=== PATIENT | female | born 1995 | race Caucasian/White ===

== ENCOUNTER 2022-02-01 09:23 | Outpatient (CLI) | payer MEDICAID, SELFPAY ==
--- NOTE | 2022-02-01 09:45 | CRLHL7_ITS ---
For Patients: As a result of the Century Cures Act, medical imaging exams and procedure reports are released immediately into your electronic medical record. You may view this report before your referring provider. If you have questions, please contact your health care provider. INDICATION: Third trimester scan, evaluate growth. MARGINAL CORD INSERT INTO PLACENTA COMPARISON: 11/11/2021 TECHNIQUE: Real time concepcion scale imaging of the fetus was performed. FINDINGS: Sonographic imaging demonstrates a single living intrauterine gestation. Fetus demonstrates a regular cardiac rate of 143 beats per minute. Fetus has a vertex position. The placenta lies left posterior. Marginal cord insertion noted with the cord inserting 1 cm from the edge of the placenta. Amniotic fluid volume appears normal and there is a single deepest vertical pocket: 4.7 cm. The estimated weight is 2141gm which lies at the 60th %. On the prior OB ultrasound exam dated 11/11/2021 the estimated weight was at the 75th%. BPD 68th percentile. HC 67th percentile. AC 84th percentile. FL 13th percentile. The HC/AC ratio measures 1.04 range (0.96-1.11). IMPRESSION: A sonographic gestational age 33 weeks 2 days and sonographic due date 03/20/2022. Sonographic age 5 days ahead of the clinical age. Estimated weight is 68th percentile. Abdominal circumference 84th percentile. Dictated by Maurilio London MD @ 02/01/2022 10:37:15 AM (Electronically Signed)
== END 2022-02-01 09:24 | disposition home or self-care (01) ==
LOC: US 09:25
PROVIDERS: PCP Family Medicine; Visit Provider Obstetrics & Gynecology
DX: Z34.93 Encounter for supervision of normal pregnancy, unspecified, third trimester (principal); Z36.89 Encounter for other specified antenatal screening; Z3A.33 33 weeks gestation of pregnancy
CPT/HCPCS: 76816

== ENCOUNTER 2022-02-10 14:37 | Outpatient (CLI) | payer MEDICAID, SELFPAY ==
[2022-02-10] VITALS (28 sets, daily range): BP systolic 107–115; BP diastolic 55–65; PULSE 65–88; RESP 16; TEMP 36.6–36.9; O2SAT 98–100
[2022-02-10 15:46] LABS: Hematocrit 35.8 % (33.0-51.0); Hemoglobin* 12.2 gm/dL (12.0-16.0); Mean Corpuscular HGB Conc 34 gm/dL (32-36); Mean Corpuscular Hemoglobin 28 pg (26-34); Mean Corpuscular Volume 83 fL (80-100); Platelet Count* 170 K/uL (140-440); White Blood Count* 9.83 K/uL (4.50-11.00)
[2022-02-10 16:03] LABS: Slide Review Reflex No
[2022-02-10 16:29] LABS: Total Protein Urine 9 mg/dL
[2022-02-10 16:32] LABS: Alanine Aminotransferase* 11 U/L (4-35); Aspartate Amino Transferase* 22 U/L (12-35); Blood Urea Nitrogen* 6 mg/dL (5-24); Creatinine Urine 43.1 mg/dL; Creatinine* 0.5 mg/dL (0.5-1.5); Estimated Glomerular Filt Rate 131 ml/min
[2022-02-10 17:09] LABS: Appearance Urine Clear (Clear); Bilirubin Urine Negative (Negative); Blood Urine Negative (Negative); Color Urine Yellow (Yellow); Glucose Urine Negative (Negative); Ketones Urine Negative (Negative); Leukocyte Esterase Urine Negative (Negative); Nitrite Urine Negative (Negative); Protein Urine Negative (Negative); Specific Gravity Urine 1.015 (1.000-1.030); Urobilinogen Urine 0.2 (0.2-1.0); pH Urine 7.5 (5.0-8.5)
--- NOTE | 2022-02-10 18:25 | PC.OBNST ---
NST Note NST Note Start: 02/10/22 14:42 Freq: ONCE Status: Active Protocol: Document 02/10/22 17:58 DENISE (Rec: 02/10/22 18:25 DENISE [id number]) NST Note 5 Para (# of births) 3 EDC 03/25/22 Patient Presented with Complaint(s) of Nausea and vomiting,Headache, Other Other Complaints pt. had c/o nausea and headache and reported elevated BP readings at home. Pt. also had frequent UC's that were identified once being put of the EFM. Reactive Yes Appropriate for Gestational Age Yes NICHOLAS Jain RN Date 02/10/22 Reactive Yes Appropriate for Gestational Age Yes NICHOLAS Shaw RNC Date 02/10/22 OB NST charge Yes Provider Evaluation of EFM Strip: Reactive: [] Appropriate for Gestational Age: [] Comments:
--- OUTSIDE RECORDS SUMMARY | 2022-03-02 19:25 | XMS_ITS | Encounter Summary ---
:1995 Author Organization [facility] Address [address] [place] [address] Care Team Providers Name Role Phone Unavailable Primary Care Provider Unavailable Reason for Visit Reason Onset Date Comments Outpatient COVID-19 Testing 03/14/2020 Encounter Details Date Type Department Care Team Description 03/14/2020 External Outreach Department of [facility], In [facility] Upper Medicine in [facility] Respiratory ([place], [place] C.N.P., D.N.P. Dx) [address] [facility] [address] [place], [place] [phone] [address] Social History Tobacco Use Types Packs/Day Years Used Date Smoking Tobacco: Never Assessed Sex Assigned at Date Recorded Not on file documented as of this encounter Progress Notes Yudy Lopez R.N. - 03/14/2020 10:38 AM CDT Encounter created for the drive-through COVID-19 testing. documented in this encounter Plan of Treatment Not on filedocumented as of this encounter Procedures Procedure Name Priority Date/Time Associated Diagnosis Comme nts SARS CORONAVIRUS-2, Routine 03/14/2020 10:48 AM R esults for this PCR CDT procedure are i n the results section. documented in this encounter Results SARS Coronavirus-2, PCR (03/14/2020 10:48 AM CDT) [facility] Method Time Signature SARS Nasopharynx 03/16/2020 DTL Coronavirus-2 1:18 AM CDT Source SARS Undetected Undetected 03/16/2020 DTL Coronavirus-2 1:18 AM CDT , PCR Comment: SARS-CoV-2 RNA absent. This result does not rule out COVID-19 in the patient, as the sensitivity of the test depends o n the timing of the specimen collection and quality of the specimen. Result should be correlated with patient's history and clinical presentat ion. ----ADDITIONAL INFORMATION---- This test was developed and its performa nce characteristics determined by [facility] in a manner co nsistent with CLIA requirements. Independent review by the U.S. Food and Drug Administration is pending. Visit the CDC website: https://www.cdc.gov/coronavirus/ ?? for the most recent guidelines on Nicole virus testing. Fact Sheet for Healthcare Providers: (https://www.[employer]/it-mmfil es/ Provider_Fact_Sheet_for_[facility]_COVI D-19.pdf) Fact Sheet for Patients: (https://www.[employer]/it-mmfil es/ Patient_Fact_Sheet_for_COVID-19.pdf) Specimen Anatomical Collection Method Collection Time Receive d Time (Source) Location / / Volume Laterality Varies 03/14/2020 10:48 03/15/2020 3:05 AM CDT PM CDT Iris Loyola APRN.N.P., D.N.P. LAB MICROBIOLOGY - GENERAL ORDERABLES Performing Organization Address City/State/ZIP Code Phon e Number [facility] - [address] [place], [place] [address] [facility] [place] [address] Laboratories-[facility] [address] documented in this encounter Visit Diagnoses Diagnosis Infection Upper Respiratory - Primary documented in this encounter Additional Health Concerns Infection Onset Date Last Indicated Resolved Time COVID19 Pending 03/14/2020 03/14/2020 03/14/2020 10:26 PM CDT documented as of this encounter
--- OUTSIDE RECORDS SUMMARY | 2022-03-02 19:25 | XMS_ITS | Clinical Summary ---
:1995 Author Organization [facility] Address [address] [place] [address] Care Team Providers Name Role Phone Unavailable Primary Care Provider Unavailable Source Comments Patient records contain information from all sites at [facility]. For routine questions regarding patient records, call [phone] during business hours, M-F 8:00 AM - 5:00 PM Central Time. Record requests for emergency care only can be directed to [phone] at any time.[facility] Social History Tobacco Use Types Packs/Day Years Used Date Smoking Tobacco: Never Assessed Sex Assigned at Date Recorded Not on file Plan of Treatment Health Maintenance Due Date Last Done Comments Cervical Cancer Screening 1995 HIV Screening 1995 Hepatitis C Screening 1993 COVID-19 Vaccine (#1) 04/28/1994 Depression Screening 07/25/2021 (Annual PHQ-2) Influenza Vaccine (#1) 2022 07/31/2009, 09/08/2006 DTaP,Tdap,and Td Vaccines 02/02/2032 02/01/2022, 10/01/2019 , (10 - Td or Tdap) 04/06/2016, Additional history exists Hepatitis B Vaccines Completed 07/29/1994, 1993, 1993 Pneumococcal vaccine (0-64 Aged Out No lo nger eligible years) based on patient 's age to complete this topic
--- OUTSIDE RECORDS SUMMARY | 2022-03-02 19:25 | XMS_ITS | Encounter Summary ---
:1995 Author Organization [facility] Address [address] [place] [address] Care Team Providers Name Role Phone Unavailable Primary Care Provider Unavailable Encounter Details Date Type Department Care Team Description 11/21/2020 Orders Only [facility] Avelino Loyd Jr., M.D. [address] [place], [place] [address], [place] [phone] (Wo rk) Social History Tobacco Use Types Packs/Day Years Used Date Smoking Tobacco: Never Assessed Sex Assigned at Date Recorded Not on file documented as of this encounter Plan of Treatment Not on filedocumented as of this encounter Visit Diagnoses Not on filedocumented in this encounter
== END 2022-02-10 18:11 | disposition home or self-care (01) ==
LOC: OB CLI 14:38 → OB 14:39
PROVIDERS: PCP Family Medicine; Visit Provider Advanced Practice Midwife
DX: O47.03 False labor before 37 completed weeks of gestation, third trimester (principal); Z3A.34 34 weeks gestation of pregnancy
CPT/HCPCS: 36415; 59025; 81003; 82565; 84156; 84450; 84460; 84520; 85027; 99211; 99213

== ENCOUNTER 2022-02-25 10:28 | Outpatient (CLI) | payer MEDICAID, SELFPAY ==
--- NOTE | 2022-02-25 11:00 | CRLHL7_ITS ---
For Patients: As a result of the Century Cures Act, medical imaging exams and procedure reports are released immediately into your electronic medical record. You may view this report before your referring provider. If you have questions, please contact your health care provider. INDICATION: Third trimester scan, evaluate growth. COMPARISON: 02/01/2022 TECHNIQUE: Real time concepcion scale imaging of the fetus was performed. FINDINGS: Sonographic imaging demonstrates a single living intrauterine gestation. Fetus demonstrates a regular cardiac rate of 143 beats per minute. Fetus has a vertex position. The placenta lies posteriorly. Amniotic fluid volume appears normal and there is a single deepest vertical pocket: 4.0 cm. The estimated weight is 2657gm which lies at the 33rd %. On the prior OB ultrasound exam dated 02/01/2022 the estimated weight was at the 68th%. BPD 42nd percentile. HC 35th percentile. AC 50th percentile. FL 8th percentile. The HC/AC ratio measures 1.02 range (0.93-1.09). IMPRESSION: Sonographic gestational age 35 weeks 4 days and sonographic due date 03/28/2022. Good correlation with dates. Normal interval growth. Estimated weight 33rd percentile. Abdominal circumference 50th percentile. Dictated by Maurilio London MD @ 02/25/2022 11:21:10 AM (Electronically Signed)
--- OUTSIDE RECORDS SUMMARY | 2022-03-03 03:33 | XMS_ITS | Clinical Summary ---
:[address] [facility] Address [address] [place] [address] Care Team Providers Name Role Phone Unavailable Primary Care Provider Unavailable Source Comments Patient records contain information from all sites at [facility]. For routine questions regarding patient records, call [phone] during business hours, M-F 8:00 AM - 5:00 PM Central Time. Record requests for emergency care only can be directed to [phone] at any time.[facility] Social History Tobacco Use Types Packs/Day Years [...]
--- OUTSIDE RECORDS SUMMARY | 2022-03-03 03:33 | XMS_ITS | Encounter Summary ---
:1995 Author Organization [facility] Address [address] [place] [address] Care Team Providers Name Role Phone Unavailable Primary Care Provider Unavailable Encounter Details Date Type Department Care Team Description 11/21/2020 Orders Only [facility] Avelino Loyd Jr., M.D. [address] [place], [place] [address], [place] [phone] (Wo rk) Social History Tobacco Use Types Packs/Day Years Used Date Smoking Tobacco: Never Assessed Sex Assigned at Date Recorded Not on file documented as of this encounter Plan of Treatment Not on filedocumented as of this encounter Visit Diagnoses Not on filedocumented in this encounter
--- OUTSIDE RECORDS SUMMARY | 2022-03-03 03:33 | XMS_ITS | Encounter Summary ---
:1995 Author Organization [facility] Address [address] [place] [address] Care Team Providers Name Role Phone Unavailable Primary Care Provider Unavailable Reason for Visit Reason Onset Date Comments Outpatient COVID-19 Testing 03/14/2020 Encounter Details Date Type Department Care Team Description 03/14/2020 External Outreach Department of [facility], In critical access hospital Upper Medicine in [facility] Respiratory ([place], [place] C.N.P., D.N.P. Dx) [address] [facility] [address] [place], [place] [phone] Social History Tobacco Use Types Packs/Day [...] SARS Coronavirus-2, PCR (03/14/2020 10:48 AM CDT) [facility] Method Time Signature SARS Nasopharynx 03/16/2020 DTL [...] and its performa nce characteristics determined by [facility] in a manner co nsistent with CLIA requirements. Independent review by the U.S. Food and Drug Administration is pending. Visit the CDC website: https://www.cdc.gov/coronavirus/ ?? for the most recent guidelines on Nicole virus testing. Fact Sheet for Healthcare Providers: (https://www.[employer]/it-mmfil es/ Provider_Fact_Sheet_for_[facility]_COVI D-19.pdf) Fact Sheet for Patients: (https://www.[employer]/it-mmfil es/ Patient_Fact_Sheet_for_COVID-19.pdf) Specimen Anatomical Collection Method Collection Time Receive d Time (Source) Location / / Volume Laterality Varies 03/14/2020 10:48 03/15/2020 3:05 AM CDT PM CDT Iris Loyola APRN.N.P., D.N.P. LAB MICROBIOLOGY - GENERAL ORDERABLES Performing Organization Address City/State/ZIP Code Phon e Number [facility] - [address] [place], [place] [address] [place] [address] Laboratories-[facility] [address] documented in this encounter Visit Diagnoses Diagnosis Infection Upper Respiratory - Primary documented in this encounter Additional Health Concerns Infection Onset Date Last Indicated Resolved Time COVID19 Pending 03/14/2020 03/14/2020 03/14/2020 10:26 PM CDT documented as of this encounter
== END 2022-02-25 10:29 | disposition home or self-care (01) ==
LOC: US 10:29
PROVIDERS: PCP Family Medicine; Visit Provider Physician Assistant
DX: Z34.93 Encounter for supervision of normal pregnancy, unspecified, third trimester (principal); Z3A.35 35 weeks gestation of pregnancy
CPT/HCPCS: 76816

== ENCOUNTER 2022-02-25 11:38 | Outpatient (CLI) | payer MEDICAID, SELFPAY ==
[2022-02-25 12:10] LABS: Hemoglobin* 12.5 gm/dL (12.0-16.0)
[2022-02-26 13:55] LABS: Strep B DNA Probe NEGATIVE (Negative)
--- OUTSIDE RECORDS SUMMARY | 2022-03-03 04:08 | XMS_ITS | Clinical Summary ---
:[address] [facility] Address [address] [place] [address] Care Team Providers Name Role Phone Unavailable Primary Care Provider Unavailable Source Comments Patient records contain information from all sites at [facility]. For routine questions regarding patient records, call [phone] during business hours, M-F 8:00 AM - 5:00 PM Central Time. Record requests for emergency care only can be directed to [phone] at any time.[facility] Social [...]
--- OUTSIDE RECORDS SUMMARY | 2022-03-03 04:08 | XMS_ITS | Encounter Summary ---
:1995 Author Organization [facility] Address [address] [place] [address] Care Team Providers Name Role Phone Unavailable Primary Care Provider Unavailable Encounter Details Date Type Department Care Team Description 11/21/2020 Orders Only [facility] Avelino Loyd Jr., M.D. [address] [place], [place] [address], [place] [phone] (Wo rk) Social History Tobacco Use Types Packs/Day Years Used Date Smoking Tobacco: Never Assessed Sex Assigned at Date Recorded Not on file documented as of this encounter Plan of Treatment Not on filedocumented as of this encounter Visit Diagnoses Not on filedocumented in this encounter
== END 2022-02-25 11:39 | disposition home or self-care (01) ==
LOC: NFLDREF 11:38
PROVIDERS: PCP Family Medicine; Visit Provider Physician Assistant
DX: Z34.93 Encounter for supervision of normal pregnancy, unspecified, third trimester (principal); Z3A.35 35 weeks gestation of pregnancy
CPT/HCPCS: 85018; 87081; 87653

== ENCOUNTER 2022-03-11 11:06 | Outpatient (CLI) | payer MEDICAID, SELFPAY ==
--- OUTSIDE RECORDS SUMMARY | 2022-03-11 11:11 | XMS_ITS | Encounter Summary ---
:1995 Author Organization [facility] Address [address] [place] [address] Care Team Providers Name Role Phone Unavailable Primary Care Provider Unavailable Reason for Visit Reason Onset Date Comments Outpatient COVID-19 Testing 03/14/2020 Encounter Details Date Type Department Care Team Description 03/14/2020 External Outreach Department of [facility], In [facility] Upper Medicine in [facility] Respiratory ([place], [place] C.N.P., D.N.P. Dx) [address] [facility] [address] [place], [place] [phone] Social History Tobacco Use Types Packs/Day [...] SARS Coronavirus-2, PCR (03/14/2020 10:48 AM CDT) [facility] Method Time Signature SARS Nasopharynx 03/16/2020 [...] and its performa nce characteristics determined by [facility] in a manner co nsistent with CLIA requirements. Independent review by the U.S. Food and Drug Administration is pending. Visit the CDC website: https://www.cdc.gov/coronavirus/ ?? for the most recent guidelines on Nicole virus testing. Fact Sheet for Healthcare Providers: (https://www.[employer]/it-mmfil es/ Provider_Fact_Sheet_for_[place]_COVI D-19.pdf) Fact Sheet for Patients: (https://www.[employer]/it-mmfil es/ Patient_Fact_Sheet_for_COVID-19.pdf) Specimen Anatomical Collection Method Collection Time Receive d Time (Source) Location / / Volume Laterality Varies 03/14/2020 10:48 03/15/2020 3:05 AM CDT PM CDT Iris Loyola APRN.N.P., D.N.P. LAB MICROBIOLOGY - GENERAL ORDERABLES Performing Organization Address City/State/ZIP Code Phon e Number [facility] - [address] [place], [place] [address] [facility] [place] [address] Laboratories-[facility] [address] documented in this encounter Visit Diagnoses Diagnosis Infection Upper Respiratory - Primary documented in this encounter Additional Health Concerns Infection Onset Date Last Indicated Resolved Time COVID19 Pending 03/14/2020 03/14/2020 03/14/2020 10:26 PM CDT documented as of this encounter
--- OUTSIDE RECORDS SUMMARY | 2022-03-11 11:11 | XMS_ITS | Clinical Summary ---
:1995 Author Organization [facility] Address [address] [place] [address] Care Team Providers Name Role Phone Unavailable Primary Care Provider Unavailable Source Comments Patient records contain information from all sites at [facility]. For routine questions regarding patient records, call [phone] during business hours, M-F 8:00 AM - 5:00 PM Central Time. Record requests for emergency care only can be directed to [phone] at any time.[facility] Social History Tobacco Use Types Packs/Day Years [...]
--- OUTSIDE RECORDS SUMMARY | 2022-03-11 11:11 | XMS_ITS | Encounter Summary ---
:1995 Author Organization [facility] Address [address] [place] [address] Care Team Providers Name Role Phone Unavailable Primary Care Provider Unavailable Encounter Details Date Type Department Care Team Description 11/21/2020 Orders Only [facility] Avelino Loyd Jr., M.D. [address] [place], [place] [address], [place] [phone] (Wo rk) Social History Tobacco Use Types Packs/Day Years Used Date Smoking Tobacco: Never Assessed Sex Assigned at Date Recorded Not on file documented as of this encounter Plan of Treatment Not on filedocumented as of this encounter Visit Diagnoses Not on filedocumented in this encounter
[2022-03-11 12:43] LABS: Alanine Aminotransferase* 12 U/L (4-35); Aspartate Amino Transferase* 21 U/L (12-35)
[2022-03-11 12:58] LABS: Total Protein Urine 18 mg/dL
[2022-03-11 13:00] LABS: Creatinine Urine 98.5 mg/dL
[2022-03-12 10:18] LABS: Blood Urea Nitrogen* 7 mg/dl (8-26); Creatinine* 0.7 mg/dl (0.6-1.3); Estimated Glomerular Filt Rate 121 ml/min
== END 2022-03-11 11:07 | disposition home or self-care (01) ==
PROVIDERS: PCP Family Medicine; Visit Provider Obstetrics & Gynecology
DX: O16.3 Unspecified maternal hypertension, third trimester (principal); Z3A.38 38 weeks gestation of pregnancy
CPT/HCPCS: 82565; 82570; 84156; 84450; 84460; 84520

== ENCOUNTER 2022-03-15 11:17 | Inpatient (IN) | payer MEDICAID, SELFPAY ==
[2022-03-15] VITALS (70 sets, daily range): BP systolic 89–138; BP diastolic 51–98; PULSE 8–150; RESP 16–18; TEMP 36.7–37.1; O2SAT 80–100; BMI 42.6
[2022-03-15 12:35] LABS: Hematocrit 35.4 % (33.0-51.0); Hemoglobin* 11.9 gm/dL (12.0-16.0); Mean Corpuscular HGB Conc 34 gm/dL (32-36); Mean Corpuscular Hemoglobin 28 pg (26-34); Mean Corpuscular Volume 82 fL (80-100); Platelet Count* 150 K/uL (140-440); Red Blood Count 4.31 m/uL (4.00-5.20); White Blood Count* 9.19 K/uL (4.50-11.00)
[2022-03-15 12:42] LABS: Slide Review Reflex No
[2022-03-15] MEDS: LACTATED RINGERS 1000 ML 1,000 ML 125 ML IV ×3 (12:49→21:27)
[2022-03-15] MEDS: OXYTOCIN 30 unit/500 ML in NS 30 UNIT/500 ML BAG IVPB (12:52)
[2022-03-15 14:03] LABS: Alanine Aminotransferase* 12 U/L (4-35); Aspartate Amino Transferase* 24 U/L (12-35); Blood Urea Nitrogen* 7 mg/dL (5-24); Creatinine* 0.7 mg/dL (0.5-1.5); Est. Creatinine Clearance* 90.29; Estimated Glomerular Filt Rate 121 ml/min
[2022-03-15 14:11] LABS: SARS PCR* Negative SARS-CoV-2 (Negative)
[2022-03-15 14:23] LABS: Total Protein Urine 14 mg/dL
[2022-03-15 14:25] LABS: Creatinine Urine 48.5 mg/dL
--- NOTE | 2022-03-15 17:22 | W.PM.LDBA ---
Subjective History of Present Illness Narrative: Patient is being admitted to Labor and Delivery for induction of labor secondary to gestational hypertension. Her blood pressures have been documented to be over 140/90 on 2 separate occasions in the last week. She is a 26 year old at 38 4/7 weeks gestation. Her full history and physical was dictated by Dr. Marley on 03/11/2022. Please see this for details. Her fetus is active. She denies headaches, visual changes, right upper quadrant pain, or any recent increase in swelling. OB - H&P: Exam Physical Exam: Vital signs: Temp Pulse Resp BP Pulse Ox 98.7 F 84 16 123/80 96 03/15/22 16:29 03/15/22 16:29 03/15/22 16:29 03/15/22 16:29 03/15/22 11:41 Narrative: VITAL SIGNS: Noted above. GENERAL APPEARANCE: Alert cooperative white female in no acute distress. MOOD AND AFFECT: Normal. CV: Heart regular rate and rhythm. PULM: Lungs clear to auscultation bilaterally. ABDOMEN: Soft, gravid, nontender. Fundal height is consistent with dates. The fetus is in a vertex presentation by Filippo's. heart tones are present with the Doptones in the 140s. : Normal female external genitalia. Cervix is mid position, soft, 2.5 cm dilated, 50% effaced, with vertex at a-2 to -3 position and ballotable. Urban score is 6. EXTREMITIES: Without significant edema, nontender bilaterally. NEURO: Intact. OB - Problem Based A/P Additional Plan (1) Gestational hypertension: Status: Acute Delivery/Labor/Induction Plan Plan: induction Induction method: per pitocin protocol
--- NOTE | 2022-03-15 17:28 | PM.OBPNL ---
Pain Control Time Seen by Provider: 17:31 Date Seen: 03/15/22 Pain control: tolerating well Contractions Monitor mode: External Contraction frequency: 2 Contraction pattern: Regular Contraction intensity: Mild Pelvic Exam Dilation (cm): 4 Effacement (%): 50 Station: -4 Comments: Presenting vertex is at a higher station now than earlier. Suspect OP position. Fetus (Single) status: Category l Assessment and Plan Pitocin rate (mU/min): 11 Assessment: induction ongoing Plan: continue present management
[2022-03-15] MEDS: fentaNYL 100 MCG/2 ML inj IVP (21:21)
[2022-03-15] MEDS: LIDOCAINE 2% (PF) 5 ML VIAL EPIDURAL (21:34)
[2022-03-15] MEDS: ROPIVACAINE 0.2% 100 ml 100 ML 12 MG EPIDURAL (21:46)
[2022-03-15] MEDS: PHENYLEPHRINE 100 MCG/ML SYRINGE IVP ×3 (21:58→22:07)
[2022-03-15] MEDS: ROPIVACAINE 0.2 % PF 10 ML INJ 20 MG EPIDURAL (22:00)
--- NOTE | 2022-03-15 22:12 | PM.OBPNL ---
Pain Control Time Seen by Provider: 22:12 Date Seen: 03/15/22 Pain control: epidural Comments: Patient had 6 minute episode of bradycardia, likely due to hypotension following epidural placement. Resolved with administration of phenylephrine and maternal repositioning. Pitocin infusion had been at 14 milliunits per minute, now off. Contractions Monitor mode: External Contraction frequency: 2 Contraction pattern: Regular Contraction intensity: Mild Pelvic Exam Dilation (cm): 4.5 cm Effacement (%): 90 Station: -3 with tense bulging bag of rangel Fetus (Single) status: Category ll Assessment and Plan Assessment: induction ongoing Plan: continue present management Comments: Will allow for maternal and recovery, and then plan to restart Pitocin infusion.
--- NOTE | 2022-03-15 22:16 | P.ANBPRC_ITS ---
[facility] Surgical History (Updated 03/11/22 @ 13:47 by Laury Marley MD) Gilman teeth extracted (~2011) Social History Smoking Status: Never smoker Meds Home Medications and Allergies Home Medications Medication Instructions Recorded Confirmed Type PNV 153-FA 400 mcg-om3 35 mg-dha 1 tab PO QDAY 02/01/22 03/15/22 History 25 mg-epa 5 mg-fish oil chew tablet ( Gummies) omeprazole 40 mg capsule,delayed mg PO DAILY 02/01/22 03/15/22 History release Allergies Allergy/AdvReac Type Severity Reaction Status Date / Time Penicillins Allergy Verified 03/15/22 14:51 bee pollen AdvReac Intermediate Severe Verified 03/15/22 14:51 swelling kiwi Allergy Mild hives Uncoded 03/15/22 14:51 Results Labs Labs: Laboratory Results - last 24 hr 03/15/22 03/15/22 03/15/22 11:38 12:15 12:30 WBC 9.19 RBC 4.31 Hgb 11.9 L Hct 35.4 MCV 82 MCH 28 MCHC 34 Plt Count 150 BUN Creatinine Estimated Creat Clear Estimated GFR AST ALT Urine Creatinine Protein/Creatinin Ratio Urine Total Protein SARS-CoV-2 (PCR) Negative SARS-CoV-2 Blood Type O Positive Antibody Screen NEGATIVE 03/15/22 03/15/22 12:30 12:30 WBC RBC Hgb Hct MCV MCH MCHC Plt Count BUN 7 Creatinine 0.7 Estimated Creat Clear 90.29 Estimated GFR 121 AST 24 ALT 12 Urine Creatinine 48.5 Protein/Creatinin Ratio 0.20 H Urine Total Protein 14 SARS-CoV-2 (PCR) Blood Type Antibody Screen Vital Signs Vital Signs: Last Vital Signs Temp 98.0 F 03/15/22 19:15 Pulse 99 03/15/22 22:14 Resp 18 03/15/22 19:15 BP 89/54 L 03/15/22 22:14 Pulse Ox 100 03/15/22 22:15 Weight: 102.285 kg Height: 154.94 cm Anesthesia Procedures Epidural Insertion Patient Location: OB Start Time: 21:03 Stop Time: 22:18 Start Date: 03/15/22 Stop Date: 03/15/22 Reason for Block: procedure for pain Patient Position: sitting Performed By: Flip Mac Preanesthetic Checklist: IV checked, risks and benefits discussed, surgical consent, monitors and equipment checked, pre-op evaluation, timeout performed and anesthesia consent Prep: chlorhexidine gluconate Monitoring: blood pressure monitoring, continuous pulse oximetry and heart rate Approach: midline Vertebral Space: lumbar (1-5) Epidural Technique: GISSELLE air Needle Type: Tuohy needle Injection Technique: continuous catheter Needle gauge: 17 Needle Length (cm): 10 cm Needle Insertion Depth (cm): 7 Catheter Gauge: 19 Catheter Type: multi-orifice Catheter at skin depth (cm): 13 Test Dose Result: negative and lidocaine 1.5% with epinephrine 1 to 200,000 Events: blood aspirated (blood return on first pass of tuohy, need removed and moved down 1 space. catheter then placed and during test dose blood returned for a second time. Moved spaces again and easy needle and catheter placement wit a egative test dose. )
[2022-03-15] MEDS: LACTATED RINGERS 1000 ML 1,000 ML 1111 ML IV (23:44)
[2022-03-16] VITALS (66 sets, daily range): BP systolic 75–127; BP diastolic 47–96; PULSE 63–177; RESP 12–20; TEMP 36.4–37.5; O2SAT 91–100
--- NOTE | 2022-03-16 03:08 | PM.OBPNL ---
Pain Control Date Seen: 03/16/22 Comments: Patient has been actively pushing for about 90 minutes. Patient is exhausted and asking for delivery. She feels pressure with contractions. Has pushed in multiple positions to try to encourage rotation from OP position. Contractions Monitor mode: External Contraction frequency: 2 Contraction pattern: Regular Contraction intensity: Mild Pelvic Exam Dilation (cm): 10 Effacement (%): 100 Station: -1 Comments: direct OP position Fetus (Single) Amniotic Membrane Status: AROM status: Category lll Comments: deep decelerations following most contractions with good variability and recovery between Assessment and Plan Pitocin rate (mU/min): 6 Assessment: active labor Comments: Informed consent for section obtained. O.R. team and Peds called.
--- NOTE | 2022-03-16 03:15 | W.PM.GYNPROC ---
Procedure Note Date Seen: 03/16/22 Procedure Details: PREOPERATIVE DIAGNOSES: 1. Intrauterine at 38 5/7 weeks' gestation. 2. Secondary arrest descent. 3. occiput posterior position. 4. Repetitive late decelerations. POSTOPERATIVE DIAGNOSES: 1. Intrauterine at 38 5/7 weeks' gestation. 2. Secondary arrest descent. 3. occiput posterior position. 4. Repetitive late decelerations. NAME OF PROCEDURE: Primary low transverse section. SURGEON: Donell. ANESTHESIA: Epidural. COMPLICATIONS: None. ESTIMATED BLOOD LOSS: 623 mL. DRAINS: Knox to gravity. FINDINGS: Live-born male infant, cephalic presentation, direct OPP position, nuchal cord x2, Apgars 3, 7 and 9 at 1, 5 and 10 minutes respectively. weight 7 lb 4 oz. Thick meconium-stained amniotic fluid. Normal appearing uterus, tubes, and ovaries. PROCEDURE: After obtaining informed consent, the patient was taken to the operating room where spinal anesthesia was obtained and found to be adequate. She was prepared and draped in the normal sterile fashion in the dorsal supine position with a leftward tilt. A Knox catheter was inserted into the bladder during prep, and blood-tinged urine was noted. A Pfannenstiel skin incision was made with a scalpel. This incision was carried down to the underlying layer of fascia with the Bovie. The fascia was incised in the midline and the incision extended laterally. The superior and inferior aspects of the fascial incision were grasped with Libia clamps, elevated and the underlying rectus muscles dissected off sharply and with electrocautery. The rectus muscles were then in the midline. The lower uterine segment and bladder were quite edematous. The vesicouterine peritoneum was elevated with the pickups, entered sharply with Metzenbaum scissors, and a bladder flap created. The bladder was pushed inferiorly. The Yevgeniy O retractor was then placed into the incision. The lower uterine segment was then incised in a transverse fashion with the scalpel. Upon entry into the uterus, thick meconium-stain amniotic fluid was noted. The uterine incision was extended laterally with blunt finger fractionation. The infant's head was delivered atraumatically, followed by the remainder of the infant's body. The nose and mouth were suctioned with the bulb suction. The cord was doubly clamped and cut, and the infant was handed off the field to Dr. Sultana for evaluation. The placenta was delivered spontaneously with umbilical cord traction and fundal massage. The uterus was cleared of all clots and debris. The hysterotomy was inspected and there was an inferior extension noted on the left side, with some active bleeding from the uterine vessels on that side. The uterine incision was reapproximated in a running locking fashion with a 0 chromic suture. A 2nd layer of the same suture was used to imbricate in horizontal fashion. An additional figure of X suture was needed at the left lateral inferior aspect of the incision for hemostasis. The gutters were irrigated and suctioned. Electrocautery was used where necessary to control bleeding from small vessels along the uterine serosa and peritoneum. All instruments and retractors were removed. The anterior peritoneum was reapproximated in a running fashion with a 3-0 Vicryl suture. There was some bleeding noted from the underside of the rectus muscles to the left of midline. This was controlled with a figure of X suture of 0 chromic. The subfascial tissues were carefully inspected and hemostasis assured. The fascia was reapproximated in a running fashion with a looped 0 Maxon suture. The subcutaneous tissues were copiously irrigated. Hemostasis was assured. [The subcutaneous fat layer was reapproximated in a running fashion using 2-0 plain gut. The skin was closed in a subcuticular fashion with 4-0 Vicryl. Surgical glue and dressing were applied. The patient tolerated the procedure well. Sponge, lap, needle, and instrument counts were reported as correct x2. A TAP block was then placed by the CAR INSTALLATIONS SUPERVISOR. The patient was taken to the recovery room, awake, and in stable condition. She did receive 2 grams of IV Ancef preoperatively.
[2022-03-16] MEDS: LACTATED RINGERS 1000 ML 1,000 ML 100 ML IV (03:37)
--- NOTE | 2022-03-16 05:46 | W.PM.NB ---
Nerve Block Nerve Block Time Seen by Provider: 03:37 Date Seen: 03/16/22 Type of block requested by surgeon for post-operative analgesia: TAP Side: bilateral Time out performed: Yes Verification of patient name: Yes Verification of date of : Yes Site marking: site marked Name of person performing procedure: Flip Mac Assistants, if any: CREATIVE SERVICES COORDINATOR Continuous monitoring Was continuous monitoring of O2 sat, B/P, traffic monitor specialist, recorded every 15 minutes?: Yes Procedure Checklist: sterile prep, needles and gloves Ultrasound guided. Images saved: Yes Medications given in 5ml increments after negative aspiration: Marcaine %: 0.25 mL: 40 Needle gauge: 21 and Exparel mL: 10 Needle gauge: 21 Patient tolerated procedure well: Yes Additional comments: meds split equally per side Block Charges Block Charge (with Pro Fee): TAP Bilateral Use of Ultrasound Machine for Block: Yes- US Guidance/pain block
--- NOTE | 2022-03-16 05:48 | W.ANESCHARGE ---
Anesthesia Charges Start Date/Time Anesthesia Start Date: 03/16/22 Anesthesia Start Time: 03:37 Stop Date/Time Anesthesia Stop Date: 03/16/22 Anesthesia Stop Time: 05:40 Summary Emergency: Yes
[2022-03-16 08:34] LABS: Hematocrit 31.7 % (33.0-51.0); Hemoglobin* 10.5 gm/dL (12.0-16.0); Mean Corpuscular HGB Conc 33 gm/dL (32-36); Mean Corpuscular Hemoglobin 28 pg (26-34); Mean Corpuscular Volume 83 fL (80-100); Platelet Count* 138 K/uL (140-440); White Blood Count* 19.54 K/uL (4.50-11.00)
[2022-03-16 08:35] LABS: Fibrinogen* 383 mg/dL (200-450); INR 1.05 (0.91-1.10); Prothrombin Time 14.2 Seconds; Slide Review Reflex No
[2022-03-16 08:37] LABS: Alanine Aminotransferase* 14 U/L (4-35); Aspartate Amino Transferase* 27 U/L (12-35); Blood Urea Nitrogen* 11 mg/dL (5-24); Creatinine* 0.9 mg/dL (0.5-1.5); Est. Creatinine Clearance* 70.22; Estimated Glomerular Filt Rate 89 ml/min
[2022-03-16] MEDS: KETOROLAC 30 MG/ML inj IVP ×3 (10:17→22:43)
[2022-03-16] MEDS: ACETAMINOPHEN 500 MG TABLET 1000 MG PO (19:27)
[2022-03-17] VITALS (14 sets, daily range): BP systolic 106–126; BP diastolic 69–86; PULSE 74–90; RESP 16; TEMP 36.6–36.9; O2SAT 95–98
[2022-03-17] MEDS: KETOROLAC 30 MG/ML inj IVP ×2 (04:50→11:00)
[2022-03-17] MEDS: SODIUM CHLORIDE 0.9 % (FLUSH) 10 ML SYRINGE IVF ×2 (04:51→11:00)
[2022-03-17 07:34] LABS: Hemoglobin* 8.7 gm/dL (12.0-16.0)
--- NOTE | 2022-03-17 08:47 | P.OBPN_ITS ---
Documented by User: Giovanna Gonzalez CNM 03/17/22 08:55 OB - PN: A/P Assessment and Plan (1) Gestational hypertension: Status: Acute Plan Comments: @ 38w 5d, Post-op Day 1 Routine care Acute Anemia, Iron supplement ordered , going well - may see if desired Anticipate discharge tomorrow or following day, per patient preference OB - PN: Subj Subjective Time Seen by Provider: 08:47 Date Seen: 03/17/22 Interval history: Ed[place]ira is post day 1. Sleeping comfortably in bed, support person bedside. Knox out, voiding without difficulty, passing flatus, no BM yet. No dizziness with ambulation. VS stable at this time. going well. Lochia minimal. Patient comments: no complaints, pain well controlled, incisional pain (tolerable 3/10), tolerating diet and flatus present [employer] status: and doing well feeding status: exclusively OB - PN: Obj Exam Physical Exam: Vital signs: Temp Pulse Resp BP Pulse Ox O2 Del Method 98 F 80 16 126/86 98 03/17/22 05:20 03/17/22 05:20 03/17/22 05:20 03/17/22 05:20 03/17/22 05:20 03/17/22 05:20 Constitutional: Constitutional: no acute distress Routine HEENT Exam: Head: Present normocephalic Eye: Present normal appearance Routine Neck Exam: Neck: Present full ROM Routine Respiratory Exam: Respiratory: Present CTA bilaterally Routine Cardiovascular Exam: Cardiovascular: Present RRR Routine Abdominal Exam: Abdominal: Present normal bowel sounds and soft; Absent tenderness Fundus: Present firm Routine Extremities Exam: Extremities: Present full ROM and pedal edema (+1) Routine Back/Spine/Pelvis Exam: Back/Spine: Present full ROM Routine Skin Exam: Skin: Present dry, normal color and warm Comments: Incision - dressing on, clean, dry & intact. Routine Neurological Exam: Neurological: Present oriented X3 Detailed Neurological Exam: Coma Scale: Eye Opening: Spontaneous (4) Urinary Catheter Management: 2-way Urethral: Cath placed during this visit: yes, but has since been removed by the nurse Reason for continuing: surgical procedure Insertion date: 03/16/22 Insertion time: 03:50 Removal date: 03/16/22 Removal time: 18:05 OB - PN: Obj Data Labs Labs: Laboratory Results - last 24 hr 03/17/22 07:22 Hgb 8.7 L Documented by User: Juanita Romo CNM 03/17/22 14:51 OB - PN: A/P Assessment and Plan (1) Gestational hypertension: Status: Acute OB - PN: Obj Exam Urinary Catheter Management: 2-way Urethral: Cath placed during this visit: yes, but has since been removed by the nurse
[2022-03-17] MEDS: ACETAMINOPHEN 500 MG TABLET 1000 MG PO ×2 (15:53→21:21)
[2022-03-17] MEDS: IBUPROFEN 600 MG TABLET PO ×2 (15:53→23:32)
[2022-03-17] MEDS: DOCUSATE SODIUM 100 MG CAPSULE PO (16:21)
[2022-03-17] MEDS: OXYCODONE 5 MG TABLET PO ×2 (16:32→21:21)
--- NOTE | 2022-03-17 18:05 | SUR.ANES ---
Rounded on patient complaining of headache following HECTOR and Csection. She does have some symptoms of a spinal headache, but other vague complaints as well. Encouraged her to drink fluids and caffeine. Talked with her about the option of a blood patch. She would like to try fluids and caffeine for a bit longer. Encouraged her to call us if symptoms worsened and that we would be available any time. Ckotiffanie REAVES
[2022-03-18] MEDS: ACETAMINOPHEN 500 MG TABLET 1000 MG PO ×2 (05:18→12:49)
[2022-03-18] MEDS: OXYCODONE 5 MG TABLET PO ×2 (05:19→12:49)
[2022-03-18 05:23] VITALS: BP 117/78
[2022-03-18 08:07] VITALS: BP 124/78; PULSE 79; RESP 16; TEMP 36.6; O2SAT 99
--- NOTE | 2022-03-18 08:27 | PM.OBDSCS1 ---
DS: Providers Provider Date Seen: 03/18/22 Date of admission: 03/15/22 11:17 Primary care physician: Jeffrey Suarez MD Admitting Clinician: Laury Marley MD Attending Physician on discharge: Laury Marley MD Date of Discharge: 03/18/22 Exam Const: Vital Signs, click to edit/add: Vital Signs - 24 hr 03/17/22 09:12 03/17/22 13:10 03/17/22 15:13 Temperature 98.4 F 98.2 F 98.4 F Pulse Rate [Right Pulse Oximeter] 74 80 79 Respiratory Rate 16 16 16 Blood Pressure [Ri ght Arm] 113/77 116/79 117/69 Pulse Oximetry 98 98 98 Oxygen Delivery Me thod Room Air Room Air Room Air 03/17/22 17:12 03/17/22 20:48 03/17/22 23:37 Temperature 98.2 F 97.9 F 97.9 F Pulse Rate [Right Pulse Oximeter] 86 75 80 Respiratory Rate 16 16 16 Blood Pressure [Ri ght Arm] 114/70 120/79 115/78 Pulse Oximetry 95 98 98 Oxygen Delivery Me thod Room Air Room Air Room Air 03/18/22 05:23 03/18/22 08:07 Temperature 97.9 F Pulse Rate [Right Pulse Oximeter] 79 Respiratory Rate 16 Blood Pressure [Ri ght Arm] 117/78 124/78 Pulse Oximetry 99 Oxygen Delivery Me thod Room Air Documenting provider has reviewed patient's vital signs: yes Common normals: no apparent distress, average body habitus, oriented x3, no limitations, healthy appearing, alert and well nourished HENMT: Common normals: normocephalic and hearing grossly normal bilaterally Head and scalp: normal to inspection and normocephalic Face and sinus: normal facial exam Eye: General eye: normal appearance of both eyes Neck & C-Spine: Common normals: full ROM, supple and no JVD General: normal visual inspection and trachea midline Resp: Common normals: normal respiratory effort, no retractions, no use of accessory muscles and clear to auscultation bilaterally Auscultation: clear to auscultation bilaterally Cardio: Common normals: no JVD, regular rate, regular rhythm, S1 normal heart sound, S2 normal heart sound, no gallops, no clicks, no murmurs and no rub Rate: regular rate Rhythm: regular rhythm Heart sounds: S1 normal and S2 normal GI: Common normals: soft to palpation Auscultation: normoactive bowel sounds Palpation: soft and tender (with palpation around the incision) Other: Incision wiht glue closure is well approximated without drainage, redness, or edema. : Uterus: U/2 Lochia: scant Extremity: Common normals: full ROM Neuro: Common normals: oriented x3 Sensorium/orientation: alert Psych: Common normals: mental status grossly normal and thought process normal Appearance: grossly normal Thought process: normal thought process OB - DS: Summary Hospital Course Hospital Course: The patient is a 26 year old G 5 P 5 at 38.5 weeks gestation that was admitted to the Center on 03/15/22 for IOL for gestational hypertension. Blood pressures are now all normal. She had an uncomplicated primary delivery after arrest of descent. She delivered a viable male infant. She is breast feeding and feels it is going very well. The patient feels well.? The pain is well controlled with current medications.? She has no new complaints.? Urinary output is adequate and she is voiding without difficulty.? Has a good appetite, is tolerating a general diet, is passing flatus, and has not had a bowel movement.? Has?a small amount of rubra lochia.? She is ambulating well.?She has had a very intense headache since yesterday that was worse when upright. She received a blood patch this morning for a suspected spinal headache and is hopeful that will relieve the pain. She plans to discharge later today after she is feeling better. Peripartum Data Procedures: Procedures Operation Date: 03/16/22 03:45 Actual Procedure Side Surgeon p Section Not Applicable Laury Marley MD complications: spinal headache [place] Infant Gender: Male Discharge Plan: Home Status at Discharge Functional status at discharge: independent ambulation Overall status at discharge: patient is progressing back to baseline Time Spent with Patient Time attestation: Total time spent providing and/or coordinating discharge services: Discharge Plan Discharge Disposition: Home, Self-Care Date of Admission: 03/15/22 11:17 Attending Provider on Discharge: Jenni Leroy Consulting Providers: Laury Marley Primary Care Provider: Jeffrey Suarez Condition: Stable Anticipated Discharge Date/Time: 03/18/22 15:00 Discharge Medications: New docusate sodium 100 mg Capsule 100 mg PO DAILY PRN (Reason: constipation) 30 Days Qty: 100 0RF ibuprofen 600 mg Tablet 600 mg PO Q6H PRN (Reason: Pain) 14 Days Qty: 30 0RF oxycodone 5 mg Tablet 5 mg PO 3XD PRN (Reason: Pain) 7 Days Qty: 21 0RF ferrous sulfate 325 mg (65 mg iron) Tablet 325 mg PO DAILYWM Qty: 60 0RF Continued Gummies 400 mcg-35 mg- 25 mg-5 mg tablet,chewable 1 tab PO QDAY omeprazole 40 mg capsule,delayed release(DR/EC) 40 mg PO DAILY Discharge Orders: Discharge Order (Routine); Ordered 03/18/22 Ordered By: Jenni Leroy Patient Education: (DC), OB /Breast Feeding Activity Restrictions/Additional Instructions: Discharge instructions were reviewed with the patient including signs and symptoms of infection and home going medications. Lifting Restrictions: 20 pounds for [address] while taking narcotic pain medication. Nothing vaginally for 6 weeks: No tampons or intercourse. No strenuous, high impact or core exercises for 6 weeks. Walking and walking up and down stairs is safe as soon as you arrive home from the hospital. Off Work or School for 8 weeks. Symptoms to report to doctor: -Bleeding that saturates more than one pad per hour ?-Passing clots larger than the size of a golf ball ?-Pain not relieved by prescribed medication ?-Fever above 100.4 degrees Fahrenheit ?-A foul vaginal odor ?-Difficulty in emotions, mood and functions ?-Thoughts of hurting yourself and/or ?-Painful, reddened area in your breast ?-Any drainage, redness or tenderness in your IV/epidural site ?-Severe headache that doesn't improve after taking medications ?-Changes in vision, including temporary loss of vision, blurred vision, and/or light sensitivity ?-Upper abdominal pain (usually under ribs on the right side) ?-Decrease in urination or painful, frequent urinating ?-Chest pain ?-Shortness of breath ?-Tenderness or pain with redness and/swelling in the calf(s) of your leg Follow Up with Dr. Laury Marley for an incision check in 1-2 weeks. Optional 2 week follow-up with a nurse halal meat packer, physician architectural administrative assistant or nurse practitioner: Review contraceptive options, screen for anxiety/depression, discuss feeding or infant care questions or problems. 6 week visit for physical exam. consultation services are available to all mothers and babies for the first year after delivery.? To make an appointment, please call [phone]. Activity Level: Activity as Tolerated and No strenuous activity Discharge Diet: Regular Follow Up Appointments: Jeffrey Suarez MD [Primary Care Provider] - Juanita Romo CNM [Certified Nurse Sanitation Worker Hosing Machinery] - Flavia Sainz CNP [Nurse Practitioner] - Trisha Jones CNM [Certified Nurse Sanitation Worker Hosing Machinery] - Jenni Leroy CNM [Certified Nurse Sanitation Worker Hosing Machinery] - Kassy Jaime PA-C [Physician Simonizer] - Laury Marley MD [Staff Physician] - Forms: [facility] Info Instructions
[2022-03-18] MEDS: IBUPROFEN 600 MG TABLET PO (09:12)
[2022-03-18] MEDS: FERROUS SULFATE 325 MG TABLET PO (09:12)
[2022-03-18] MEDS: DOCUSATE SODIUM 100 MG CAPSULE PO (09:12)
--- NOTE | 2022-03-18 11:59 | P.ANBPRC_ITS ---
[facility] Medical History (Updated 03/16/22 @ 15:16 by Marizol Martinez MD) Surgical History (Updated 03/16/22 @ 15:15 by Marizol Martinez MD) Status post primary low transverse section (03/16/22) [place] teeth extracted (~2011) Social History Smoking Status: Never smoker Meds Home Medications and Allergies Home Medications Medication Instructions Recorded Confirmed Type PNV 153-FA 400 mcg-om3 35 mg-dha 1 tab PO QDAY 02/01/22 03/17/22 History 25 mg-epa 5 mg-fish oil chew tablet ( Gummies) omeprazole 40 mg capsule,delayed 40 mg PO DAILY 02/01/22 03/17/22 History release Allergies Allergy/AdvReac Type Severity Reaction Status Date / Time Penicillins Allergy Verified 03/15/22 14:51 bee pollen AdvReac Intermediate Severe Verified 03/15/22 14:51 swelling kiwi Allergy Mild hives Uncoded 03/15/22 14:51 Results Vital Signs Vital Signs: Last Vital Signs Temp 97.9 F 03/18/22 08:07 Pulse 79 03/18/22 08:07 Resp 16 03/18/22 08:07 BP 124/78 03/18/22 08:07 Pulse Ox 99 03/18/22 08:07 O2 Del Method 03/18/22 08:07 Weight: 101.2 kg Height: 154.94 cm Anesthesia Procedures Epidural Blood Patch Patient Location: OB Start Time: 07:35 Stop Time: 08:05 Reason for Blood Patch: spinal headache Anesthesiologist: Hossein INSTRUCTOR DRAMATIC ARTS: Regina Preanesthetic Checklist: IV checked, site marked (Site was not marked, however puncture sites from previous epidural placment were noted and utilized ), risks and benefits discussed, surgical consent, monitors and equipment checked, pre-op evaluation, timeout performed and anesthesia consent Patient Symptoms: postural headache and photophobia Pain (1-10): 6 Pain duration: 2 DAYS Pain Frequency: frequently Quality of Pain: aching and squeezing Pain exacerbated by: standing and sitting Pain made better: darkness and position change Diagnosis of PDPH: Yes Volume of Blood Injected (mL): 20 Patient Position: sitting Prep: Chloraprep Monitoring: cont pulse oximetry Approach: midline Location: L3-4 Injection Technique: GISSELLE air Injection Method: Touhy needle Needle Gauge Used: 17 Needle Length (cm): 10 cm Notes: L3-4 level. based on puncture sites from previous epidural attempts went in between lower attempts. easy to pass needle. Loss of resistance was clear. 20 ml of blood was injected without difficulty. Patient reported no pressure or paresthesias. Had patient lay down. she did feel some neck pressure upon laying down. No complications
== END 2022-03-18 14:00 | disposition home or self-care (01) | DRG 787 ==
PROVIDERS: Admitting Provider Obstetrics & Gynecology; PCP Family Medicine; Visit Provider Obstetrics & Gynecology
PROC: 10D00Z1 Extraction of Products of Conception, Low, Open Approach (ICD-10-PCS; CPT 59514; principal; 2022-03-16 03:30)
DX: O13.4 Gestational [pregnancy-induced] hypertension without significant proteinuria, complicating childbirth (principal); D62 Acute posthemorrhagic anemia; O90.81 Anemia of the puerperium; O76 Abnormality in fetal heart rate and rhythm complicating labor and delivery; O32.4XX0 Maternal care for high head at term, not applicable or unspecified; O89.4 Spinal and epidural anesthesia-induced headache during the puerperium; O75.81 Maternal exhaustion complicating labor and delivery; Z3A.38 38 weeks gestation of pregnancy; Z37.0 Single live birth
CPT/HCPCS: 01967; 01968; 36415; 62273; 64488; 76942; 82565; 82570; 84156; 84450; 84460; 84520; 85018; 85027; 85384; 85610; 86850; 86900; 86901; 87635; 88307; 99140; A9270; C9290; J1100; J1885; J2274; J2370; J2405; J2590; J2795; J3010; J3490; J7120

== ENCOUNTER 2022-08-13 14:10 | Outpatient (CLI) | payer MEDICAID, SELFPAY ==
--- NOTE | 2022-08-13 15:00 | CRLHL7_ITS ---
For Patients: As a result of the Century Cures Act, medical imaging exams and procedure reports are released immediately into your electronic medical record. You may view this report before your referring provider. If you have questions, please contact your health care provider. Indication: ABDOMINAL PAIN SINCE C SECTION IN FEBRUARY 2022 Technique: Postcontrast CT abdomen and pelvis. Oral water. 100 cc Isovue 370 intravenous contrast. Please note that all CT scans at this facility use dose modulation, iterative reconstruction, and/or weight-based dosing when appropriate to reduce radiation dose to as low as reasonably achievable. Comparison: None Findings: Lung bases are clear. Liver is normal. Spleen is upper limits of normal in size. Normal pancreas. Normal adrenal glands. Kidneys unremarkable. Normal gallbladder. Stomach appears normal. Normal small bowel. Normal bladder. No bowel obstruction, free air, free fluid, abscess or adenopathy. Normal appendix. The ovaries are within normal limits. Unremarkable uterus without evidence of pathology regarding the section site. No incisional hernia within the abdominal wall. No fracture is present. Incidental bone island within the left anterior acetabulum. Impression: Unremarkable CT of the abdomen and pelvis. Please note that all CT scans at this facility use dose modulation, iterative reconstruction, and/or weight-based dosing when appropriate to reduce radiation dose to as low as reasonably achievable. Dictated by Maurilio London MD @ 08/13/2022 4:06:40 PM (Electronically Signed)
== END 2022-08-13 14:11 | disposition home or self-care (01) ==
LOC: CT 14:11
PROVIDERS: PCP Family Medicine; Visit Provider Obstetrics & Gynecology
DX: R10.9 Unspecified abdominal pain (principal)
CPT/HCPCS: 74177; Q9967

== ENCOUNTER 2023-09-02 10:04 | Outpatient (CLI) | payer MEDICAID, SELFPAY | END 2023-09-02 10:05 | disposition home or self-care (01) | PROVIDERS: PCP Nurse Practitioner Family; Visit Provider Nurse Practitioner Family | DX: R10.13 Epigastric pain (principal) | CPT/HCPCS: 80053; 82150; 83690; 85025 ==

== ENCOUNTER 2023-10-05 08:17 | Outpatient (CLI) | payer MEDICAID, SELFPAY ==
--- NOTE | 2023-10-05 08:45 | US_ITS ---
Patient: VANITA ZELAYA Facility:?[facility] Patient ID:?[id number] Site Patient ID:?[id number]. Site :?[id number] Study:?US-Abdomen RUQ-10/05/2023 9:00:56 AM Ordering Physician:LISA GARCIA Final Report: INDICATION: Epigastric pain COMPARISON: CT 08/13/2022 TECHNIQUE: Real time concepcion scale imaging and color Doppler analysis was performed of the right upper quadrant. FINDINGS: The patient`s liver is of normal size and has uniform echogenicity. There is a normal appearance of the hepatic IVC and proximal abdominal aorta. There is no evidence of ascites. The gallbladder is of normal size and there is no evidence of intraluminal stones or sludge. The gallbladder wall measures 1 mm in thickness. The common bile duct is of normal size and measures 2.5 mm in diameter at the level of the lilia hepatis. The pancreas appears normal. There is no evidence of a stone or hydronephrosis within the right kidney. The right kidney measures 11.2 cm in length. IMPRESSION: Normal right upper quadrant ultrasound. Dictated by Maurilio London MD @ 10/05/2023 9:49:39 AM Signed by:?Maurilio London MD @10/05/2023 9:49:39 AM (Electronic Signature)
== END 2023-10-05 08:18 | disposition home or self-care (01) ==
LOC: US 08:18
PROVIDERS: PCP Nurse Practitioner Family; Visit Provider Nurse Practitioner Family
DX: R10.13 Epigastric pain (principal)
CPT/HCPCS: 76705

== ENCOUNTER 2024-02-03 12:00 | Outpatient (CLI) | payer MEDICAID, SELFPAY | END 2024-02-03 12:01 | disposition home or self-care (01) | LOC: NFLDREF 19:24 | PROVIDERS: PCP Nurse Practitioner Family; Referring Provider Nurse Practitioner Family; Visit Provider Nurse Practitioner Family | DX: R51.9 Headache, unspecified (principal); M25.50 Pain in unspecified joint | CPT/HCPCS: 84550; 85651; 86039; 86140; 86200; 86431; 86618; 86812 ==

== ENCOUNTER 2024-03-01 08:42 | Outpatient (CLI) | payer MEDICAID, SELFPAY ==
--- NOTE | 2024-03-01 09:15 | CRLHL7_ITS ---
For Patients: As a result of the Century Cures Act, medical imaging exams and procedure reports are released immediately into your electronic medical record. You may view this report before your referring provider. If you have questions, please contact your health care provider. INDICATION: Headaches. TECHNIQUE: Multiplanar multisequence noncontrast MR images of the brain. COMPARISON: None. FINDINGS: The ventricles and sulci are within normal limits for patient age. No mass effect or midline shift. No parenchymal signal abnormalities. No intracranial hemorrhage or pathologic extra-axial fluid collection. No diffusion restriction to suggest acute infarction. The major arterial flow voids at the skull base are preserved. The globes are symmetric. The paranasal sinuses are well aerated. Trace right mastoid fluid. IMPRESSION: Unremarkable noncontrast MRI of the brain. Dictated by Mark Lechuga MD @ 03/01/2024 9:25:40 PM (Electronically Signed)
== END 2024-03-01 08:43 | disposition home or self-care (01) ==
LOC: MRI 08:43
PROVIDERS: PCP Nurse Practitioner Family; Visit Provider Nurse Practitioner Family
DX: R51.9 Headache, unspecified (principal)
CPT/HCPCS: 70551

== ENCOUNTER 2024-05-02 11:34 | Outpatient (CLI) | payer MEDICAID, SELFPAY ==
[2024-05-02 16:02] LABS: Bacterial Vaginosis* POSITIVE (Negative); Candida glab/krus NOT DETECTED (No Detected); Candida species NOT DETECTED (No Detected); Trichomonas vaginalis NOT DETECTED (No Detected)
[2024-05-02 16:33] LABS: Chlamydia DNA Amplified* NOT DETECTED (No Detected); GC DNA Amplified* NOT DETECTED (No Detected)
== END 2024-05-02 11:35 | disposition home or self-care (01) ==
PROVIDERS: PCP Nurse Practitioner Family; Visit Provider Registered Nurse
DX: N93.9 Abnormal uterine and vaginal bleeding, unspecified (principal); R10.2 Pelvic and perineal pain
CPT/HCPCS: 81513; 83498; 84146; 84403; 84443; 87086; 87481; 87491; 87591; 87661

== ENCOUNTER 2024-05-09 13:36 | Outpatient (CLI) | payer MEDICAID, SELFPAY ==
--- NOTE | 2024-05-09 14:00 | CRLHL7_ITS ---
For Patients: As a result of the Century Cures Act, medical imaging exams and procedure reports are released immediately into your electronic medical record. You may view this report before your referring provider. If you have questions, please contact your health care provider. INDICATION: Abnormal uterine bleeding TECHNIQUE: Ultrasound pelvis transabdominal and transvaginal for better assessment or to better visualize the endometrium. COMPARISON: Ob ultrasound 03/13/2021 FINDINGS: Uterus: 8.7 x 4.6 x 5.4 cm. Normal echotexture of the myometrium. No masses. Endometrium: Transvaginal imaging was performed to better evaluate the endometrium. Endometrial thickness measures 10 mm. There is a hyperechoic area within the endometrium measuring 1.8 x 0.8 x 2.3 cm with vascularity. Right ovary 3.3 x 1.6 x 2.6 cm. No ovarian or adnexal masses. Left ovary 2.8 x 1.4 x 2.5 cm. No ovarian or adnexal masses. Cul-de-sac: No significant free fluid. IMPRESSION: 1. Vascular structure within the endometrium measuring up to 2.3 cm may represent a polyp. Recommend consultation with Gynecology. Pelvic MRI can be considered for further evaluation. 2. The bilateral ovaries are unremarkable. Dictated by Becki Leon MD @ 05/14/2024 10:20:00 AM (Electronically Signed)
== END 2024-05-09 13:37 | disposition home or self-care (01) ==
LOC: US 13:37
PROVIDERS: PCP Nurse Practitioner Family; Visit Provider Registered Nurse
DX: N93.9 Abnormal uterine and vaginal bleeding, unspecified (principal)
CPT/HCPCS: 76830; 76856

== ENCOUNTER 2024-10-22 08:49 | Emergency (ER) | payer MEDICAID, SELFPAY ==
--- OUTSIDE RECORDS SUMMARY | 2024-10-22 08:52 | XMS_ITS | Clinical Summary ---
Author Organization [facility] Address [address] [place] [address] Care Team Providers Care Spike Machine Heater Name Role Phone Elsewhere, Pcp Primary Care Provider Unavailabl e Source Comments Patient records contain information from all sites at [facility]. For routine questions regarding patient records, call [phone] during business hours, M-F 8:00 AM - 5:00 PM Central Time. Record requests for emergency care only can be directed to [phone] at any time.[facility] Allergies Active Allergy Reactions Criticality Noted Date Comments Kiwi Edema, suggestive of allergic reaction, i.e., lip, tongue, or throat swelling High 02/03/2024 Penicillins Hives only, no other systemic symptoms 02/03/2024 Venom-Wasp Edema 02/03/2024 Medications EPINEPHrine 0.3 mg/0.3 mL injection syringe Inject 0.3 mL intramuscularly as needed. 04/04/20 23 Active Social History Tobacco Use Types Packs/Day Years Used Date Smoking Tobacco: Never Tobacco Cessation:Counseling Given: Not Answered Alcohol Use Standard Drinks/Week Comments Defer 0 (1 standard drink = 0.6 oz pur e alcohol) Nutrition Answer Date Recorded Nutrition: EVOO Fat Source Unknown 09/29 Nutrition: Servings of Fruits/Vegetables per Day Not on file 09/29/2020 Dental Answer Date Recorded Dental: Regular Dentist Unknown 06/26/20 24 Comments No Sex and Gender Information Value Date Recorded Sex Assigned at Not on file Legal Sex Female 10:29 AM CDT Gender Identity Not on file Sexual Orientation Not on file Last Filed Vital Signs Vital Sign Reading Time Taken Comments Blood Pressure 139/70 06/26/2024 8:45 AM PERSONAL LOAN SPECIALIST Pulse 90 06/26/2024 8:45 AM PERSONAL LOAN SPECIALIST Temperature 36.5 C (97.7 F) 06/26/2024 10:03 AM PERSONAL LOAN SPECIALIST Respiratory Rate 18 06/26/2024 8:40 AM PERSONAL LOAN SPECIALIST Oxygen Saturation 98% 06/26/2024 8:45 AM PERSONAL LOAN SPECIALIST Inhaled Oxygen Concentration - - Weight 103 kg (227 lb 15.3 oz) 06/26/2024 8:53 A M PERSONAL LOAN SPECIALIST Height - - Body Mass Index - - Plan of Treatment Health Maintenance Due Date Last Done Comments Cervical/Vaginal Cancer Screening 1993 HIV Screening 1993 Hepatitis C Screening 1993 COVID-19 Vaccine ( season) 2024 Influenza Vaccine (#1) 2024 07/31/2009, 2006 Depression Screening (Annual PHQ-2) 07/25/2024 DTaP,Tdap,and Td Vaccines (10 - Td or Tdap) 02/02/2032 02/01/2022, 10/01/2019, 04/06/2016, Additional history exists Hepatitis B Vaccines Completed 07/29/1994, 1993, 1993 IPV Vaccines Completed 06/17/1999, 03/26, 03/11/1994, Additional history exists HPV Vaccines Aged Out No longer eligi ble based on patient's age to complete this topic Pneumococcal vaccine (0-49 years) Aged Out No longer eligible based on patient's age to complete this topic Insurance [facility] Care Teams Spike Machine Heater Relationship Specialty Start Date End Date Elsewhere, Pcp PCP - General Internal Medicine 06/26/24
[2024-10-22 09:01] VITALS: BP 106/71; PULSE 84; RESP 18; TEMP 36.9; O2SAT 100; BMI 39.2
--- OUTSIDE RECORDS SUMMARY | 2024-10-22 10:05 | XMS_ITS | Clinical Summary ---
Author Organization [facility] Address [address] [place] [id number] Care Team Providers Care Draw Off Worker Name Role Phone Elsewhere, Pcp Primary Care Provider Unavailabl e Source Comments Patient records contain information from all sites at [facility]. For routine questions regarding patient records, call [phone] during business hours, M-F 8:00 AM - 5:00 PM Central Time. Record requests for emergency care only can be directed to [phone] at any time.[facility] Allergies Active Allergy Reactions Criticality Noted Date [...] Comments Blood Pressure 139/70 06/26/2024 8:45 AM ACCOUNTS PAYABLE ACCOUNTANT Pulse 90 06/26/2024 8:45 AM ACCOUNTS PAYABLE ACCOUNTANT Temperature 36.5 C (97.7 F) 06/26/2024 10:03 AM ACCOUNTS PAYABLE ACCOUNTANT Respiratory Rate 18 06/26/2024 8:40 AM ACCOUNTS PAYABLE ACCOUNTANT Oxygen Saturation 98% 06/26/2024 8:45 AM ACCOUNTS PAYABLE ACCOUNTANT Inhaled Oxygen Concentration - - Weight 103 kg (227 lb 15.3 oz) 06/26/2024 8:53 A M ACCOUNTS PAYABLE ACCOUNTANT Height - - Body Mass Index - [...] patient's age to complete this topic Insurance [facility] Care Teams Draw Off Worker Relationship Specialty Start Date End Date Elsewhere, Pcp PCP - General Internal Medicine 06/26/24
--- NOTE | 2024-10-22 10:12 | CRLHL7_ITS ---
For Patients: As a result of the Century Cures Act, medical imaging exams and procedure reports are released immediately into your electronic medical record. You may view this report before your referring provider. If you have questions, please contact your health care provider. Indication: HYPEREMESIS LMP: Unknown Technique: Real-time sonographic images of the pelvis were obtained transvaginally using grayscale, color, and Doppler imaging. Comparison: None. Findings: Uterus: Gestational sac: Mean sac diameter measures 2.1 centimeter, compatible with an average ultrasound age of 7 weeks 0 days. pole: [place]-rump length measures 0.7 centimeter, compatible with an average ultrasound age of 6 weeks 4 days. Yolk sac: Present. heart rate: 124 beats/min. Right ovary: Size: 3.1 x 1.8 x 2.2 centimeter. Appearance: Normal morphology. No masses. Left ovary: Size: 4.2 x 2.5 x 2.6 centimeter. Appearance: Normal morphology. 2.6 x 2.0 x 1.9 centimeter corpus luteum. Bladder: Visualized bladder is normal. Other: No free fluid. Impression: Single live intrauterine with crown-rump length corresponding to 6 weeks 4 days. Dictated by Lance Munguia MD @ 10/22/2024 11:01:10 AM (Electronically Signed)
[2024-10-22 10:17] LABS: Appearance Urine Clear (Clear); Bilirubin Urine Negative (Negative); Blood Urine Negative (Negative); Color Urine Yellow (Yellow); Glucose Urine Negative (Negative); Ketones Urine 3+ (Negative); Leukocyte Esterase Urine Negative (Negative); Nitrite Urine Negative (Negative); Protein Urine Trace (Negative); Urobilinogen Urine 0.2 (0.2-1.0)
--- NOTE | 2024-10-22 10:22 | PC.NURSE ---
pt to US now, new orders for fluids and zofran recieved, labs drawn
[2024-10-22 10:32] LABS: Albumin* 4.5 g/dL (3.3-5.0); Chloride* 104 mmol/L (96-114)
[2024-10-22 10:33] LABS: Sodium* 136 mmol/L (135-149)
[2024-10-22 10:35] LABS: Anion Gap 9 mEq/L (7-15); Blood Urea Nitrogen* 6 mg/dL (5-24); Carbon Dioxide* 23 mmol/L (20-32); Creatinine* 0.6 mg/dL (0.5-1.5); Est. Creatinine Clearance* 118.39; Estimated Glomerular Filt Rate 124 ml/min
[2024-10-22 10:36] LABS: Alanine Aminotransferase* 17 U/L (4-35); Alkaline Phosphatase* 65 U/L (40-150); Aspartate Amino Transferase* 25 U/L (12-35); Bilirubin Total* 0.5 mg/dL (0.1-1.5); Calcium* 8.9 mg/dL (8.4-10.6); Glucose* 88 mg/dL (60-115); Magnesium* 1.8 mg/dL (1.5-2.6); Total Protein* 7.4 g/dL (6.0-8.3)
[2024-10-22] MEDS: LACTATED RINGERS 1000 ML 1,000 ML IV (10:44)
[2024-10-22] MEDS: ONDANSETRON 2 MG/ML inj 4 MG IVP ×2 (10:46→11:10)
[2024-10-22 10:57] LABS: Basophils Absolute Auto 0.04 K/uL (0.00-0.30); Basophils Percent Auto 0.5 % (0.0-3.0); Eosinophils Percent Auto 2.6 % (0.0-7.0); Hematocrit 41.4 % (33.0-51.0); Hemoglobin* 14.2 gm/dL (12.0-16.0); Immature Granulocytes Abs Auto 0.02 K/uL (0.00-0.30); Immature Granulocytes Pct Auto 0.3 %; Lymphocytes Percent Auto 16.9 % (20-44); Mean Corpuscular HGB Conc 34 gm/dL (32-36); Mean Corpuscular Hemoglobin 29 pg (26-34); Mean Corpuscular Volume 85 fL (80-100); Monocytes Percent Auto 7.5 % (0.0-11.0); Neutrophils Percent Auto 72.2 % (42.0-72.0); Platelet Count* 250 K/uL (140-440); RDW Coefficient of Variation % 12.8 % (11.5-15.5); Red Blood Count 4.88 m/uL (4.00-5.20); White Blood Count* 7.71 K/uL (4.50-11.00)
[2024-10-22 10:58] LABS: Slide Review Reflex No
--- NOTE | 2024-10-22 11:00 | ED_ITS ---
HPI - Nausea/Vomiting/Diarrhea General Date Seen: 10/22/24 Chief complaint: Nausea/Vomiting Stated complaint: excessive vomitting- Time Seen by Provider: 10/22/24 08:53 Source: patient Mode of arrival: ambulatory Limitations: no limitations History of Present Illness HPI Narrative: Patient is a 28-year-old female presenting to emergency department for nausea and vomiting. She is A1 with a miscarriage currently . She is unknown how long she has been as she has been having dysfunctional uterine bleeding for the past year and does not know when her last period was. Her 1st OB appointment is this upcoming Tuesday of this both to have an ultrasound at that time. States she has been vomiting excessively for the past several days and cannot eat or drink anything without vomiting. She has not had anything for her nausea yet is still feels nauseated at this time. She started having some cramping today and has been having low urine output. Denies lighth eadedness, dizziness, chest pain, shortness of breath, fevers. Does states she has been having some mild chills. Not aware of any sick contacts. Related Data Previous Rx's ?Medication ?Instructions ?Recorded epinephrine 0.3 mg/0.3 mL 0.3 ml IM Q5-15M PRN 04/04/23 injection, auto-injector hypersensitivity reaction #2 ea Allergies Allergy/AdvReac Type Severity Reaction Status Date / Time kiwi Allergy Verified 05/02/24 10:53 Penicillins Allergy Verified 05/02/24 10:53 venom-wasp Allergy Verified 05/02/24 10:53 bee pollen AdvReac Intermediate Severe Verified 05/02/24 10:53 swelling Paper wasp Allergy Severe Uncoded 05/02/24 10:53 white faced hornet Allergy Severe Uncoded 05/02/24 10:53 Review of Systems Status of ROS: Reports: 10 or more systems reviewed and unremarkable except as noted in History and below [facility] Medical History History of vaginal delivery Gestational hypertension ?O13.9 - Gestational [-induced] hypertension without significant proteinuria, unspecified trimester (ICD-10) Seasonal allergies (03/19/11) ?J30.2 - Other seasonal allergic rhinitis (ICD-10) Surgical History Status post primary low transverse section (03/16/22) ?Z98.891 - History of uterine scar from previous surgery (ICD-10) Adamant teeth extracted (~2011) ?K08.409 - Partial loss of teeth, unspecified cause, unspecified class (ICD- 10) Social History Narrative: . 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 Formal exercise. Non-smoker. No alcohol. No illicit drug use. Smoking Status: Never smoker How often do you have a drink containing alcohol: never AUDIT-C Alcohol total score: 0 Non-prescribed substance use: denies use service: No Exam Narrative: Exam Narrative: Const: Well-nourished, Well-developed, in mild distress Eyes: PERRL, no conjunctival injection, and symmetrical lids HENT: Atraumatic external nose and ears. Moist mucous membranes. Neck: Symmetric, trachea midline, No thyromegaly. CVS: RRR, No murmurs or gallops. Peripheral pulses 2+ and equal in all extremities RESP: Unlabored respiratory effort. Clear to auscultation bilaterally. GI: Nontender/Nondistended, No rebound or guarding. MSK:Extremities w/o deformity, Normal Active ROM Skin: Warm, Dry. No rashes or lesions. Neuro: Normal Muscle tone, No focal neurological deficits. Psych: Awake, Alert, & Oriented x3. Appropriate mood and affect. Const: Vital Signs, click to edit/add: Vital Signs - 24 hr 10/22/24 09:01 10/22/24 12:07 Temperature 98.4 F Pulse Rate [Right Radial] 84 76 Respiratory Rate 18 18 Blood Pressure [Ri ght Upper Arm] 106/71 122/73 Pulse Oximetry 100 100 Oxygen Delivery Me thod Room Air Room Air Course Vital Signs Vital signs: Initial Vital Signs Temperature 98.4 F 10/22/24 09:01 Temperature Source Temporal Artery Scan 10/22/24 09:01 Pulse Rate 84 10/22/24 09:01 Pulse Rhythm Regular 10/22/24 09:01 Respiratory Rate 18 10/22/24 09:01 Blood Pressure 106/71 10/22/24 09:01 Blood Pressure Mean 82 10/22/24 09:01 Blood Pressure Position Sitting 10/22/24 09:01 Pulse Oximetry 100 10/22/24 09:01 Oxygen Delivery Method Room Air 10/22/24 09:01 Vital Signs Temperature 98.4 F 10/22/24 09:01 Pulse Rate 84 10/22/24 09:01 Respiratory Rate 18 10/22/24 09:01 Blood Pressure 106/71 10/22/24 09:01 Pulse Oximetry 100 10/22/24 09:01 Oxygen Delivery Method Room Air 10/22/24 09:01 Temperature 98.4 F 10/22/24 09:01 Pulse Rate 76 10/22/24 12:07 Respiratory Rate 18 10/22/24 12:07 Blood Pressure 122/73 10/22/24 12:07 Pulse Oximetry 100 10/22/24 12:07 Oxygen Delivery Method Room Air 10/22/24 12:07 Medications Administered Medications: Discontinued Medications Generic Name Dose Route Start Last Admin Trade Name Freq PRN Reason Stop Dose Admin Lactated Ringer's 1,000 mls @ 1,000 mls/hr 10/22/24 10:12 10/22/24 12:16 Lactated Ringers 1000 Ml IV 10/22/24 11:11 Infused .Q1H ONE Infusion Metoclopramide HCl 10 mg 10/22/24 11:44 10/22/24 12:06 Metoclopramide Hcl 5 Mg/Ml Inj IVP 10/22/24 11:45 10 mg ONCE ONE Administration Ondansetron HCl 4 mg 10/22/24 10:12 10/22/24 10:46 Ondansetron 2 Mg/Ml Inj IVP 10/22/24 10:13 4 mg ONCE ONE Administration Ondansetron HCl 4 mg 10/22/24 11:06 10/22/24 11:10 Ondansetron 2 Mg/Ml Inj IVP 10/22/24 11:07 4 mg ONCE ONE Administration MDM - Nausea/Vomiting/Diarrhea MDM Narrative Medical decision making narrative: Patient is a 28-year-old female presenting to the emergency department for nausea and vomiting. Patient is but unsure how far along she is. Has not had ultrasound yet. With her likely hyperemesis gravidarum there is some concern this could be a molar that is causing the symptoms. Will require an ultrasound. She is also having consistent vaginal bleeding and some mild cramping. The symptoms are not all that different from what she has been having with the past several months with the vaginal bleeding of I will do an ultrasound to rule out an ectopic. Also order CBC, CMP, magnesium. Will give her Zofran for nausea and a L of lactated Ringer's for her dehydration. Ultrasound is consistent with a normal intrauterine 6 weeks and 4 days. She was not having any resolution Zofran. Tried another dose as we are unsure of the 1st Zofran worked as the IV was infiltrated. Second dose of Zofran did not help either. After the Reglan initially had some mild improvement and feels like she is comfortable going home. Lab work shows no concerning findings. Urinalysis does show ketones consistent with dehydration. She would like to be discharged. This is reasonable and she will have close follow-up with her OB provider. Will provide her Reglan. Lab Data Labs: Lab Results 10/22/24 10/22/24 10/22/24 Range/Units 10:08 10:50 11:05 WBC 7.71 (4.50-11.00) K/uL RBC 4.88 (4.00-5.20) m/uL Hgb 14.2 (12.0-16.0) gm/dL Hct 41.4 (33.0-51.0) % MCV 85 (80-100) fL MCH 29 (26-34) pg MCHC 34 (32-36) gm/dL RDW Coeff of Hamzah 12.8 (11.5-15.5) % Plt Count 250 (140-440) K/uL Neut % (Auto) 72.2 H (42.0-72.0) % Lymph % (Auto) 16.9 L (20-44) % [place] % (Auto) 7.5 (0.0-11.0) % Eos % (Auto) 2.6 (0.0-7.0) % Baso % (Auto) 0.5 (0.0-3.0) % Neut # (Auto) 5.60 (1.7-7.0) K/uL Lymph # (Auto) 1.30 (0.90-2.90) K/uL [place] # (Auto) 0.60 (0.00-0.90) K/UL Eos # (Auto) 0.20 (0.00-0.50) K/uL Baso # (Auto) 0.04 (0.00-0.30) K/uL Abs Immat Gran (auto) 0.02 (0.00-0.30) K/uL Imm/Tot Granulo (auto) 0.3 % Sodium 136 (135-149) mmol/L Potassium 4.0 (3.6-5.1) mmol/L Chloride 104 (96-114) mmol/L Carbon Dioxide 23 (20-32) mmol/L Anion Gap 9 (7-15) mEq/L BUN 6 (5-24) mg/dL Creatinine 0.6 (0.5-1.5) mg/dL Estimated Creat Clear 118.39 Estimated GFR 124 ml/min Glucose 88 (60-115) mg/dL Calcium 8.9 (8.4-10.6) mg/dL Magnesium 1.8 (1.5-2.6) mg/dL Total Bilirubin 0.5 (0.1-1.5) mg/dL AST 25 (12-35) U/L ALT 17 (4-35) U/L Alkaline Phosphatase 65 (40-150) U/L Total Protein 7.4 (6.0-8.3) g/dL Albumin 4.5 (3.3-5.0) g/dL HCG, Quant 93597.00 mIU/mL Urine Color Yellow (Yellow) Urine Appearance Clear (Clear) Urine pH 6.0 (5.0-8.5) Ur Specific [place] 1.020 (1.000-1.030) Urine Protein Trace A (Negative) Urine Glucose (UA) Negative (Negative) Urine Ketones 3+ A (Negative) Urine Blood Negative (Negative) Urine Nitrite Negative (Negative) Urine Bilirubin Negative (Negative) Urine Urobilinogen 0.2 (0.2-1.0) Ur Leukocyte Esterase Negative (Negative) Urine RBC 0-2 (0-2) Urine WBC 0-2 (0-5) Ur Squamous Epith Cells Many A (None-Few) Amorphous Sediment Few A (None) Urine Bacteria None (None) Lab Acknowledgement Test Added Imaging Data Pelvic ultrasound: Attestation: I have reviewed the pertinent imaging results. Radiologist's impression: Single live intrauterine with crown-rump length corresponding to 6 weeks 4 days. Dictated by Lance Munguia MD @ 10/22/2024 11:01:10 AM Discharge Plan Discharge Clinical Impression: Hyperemesis gravidarum Patient Disposition: Home, Self-Care Condition: Stable Instructions: Hyperemesis Gravidarum (ED) Additional Instructions: Use the Reglan as needed for nausea. Have close follow-up with your OB provider. Return to emergency department for new or worsening symptoms. Prescriptions: No Action epinephrine 0.3 mg/0.3 mL auto-injector 0.3 ml IM Q5-15M PRN (Reason: hypersensitivity reaction) Qty: 2 1RF Rx Instructions: do not exceed 3 doses per episode Follow Up/Referrals: Cher Michele, PRINCIPAL EMBEDDED SOFTWARE ENGINEER, STRATEGY SPECIALIST [Primary Care Provider] - Stand Alone Forms: [facility] Info Instructions
[2024-10-22 11:18] LABS: RBC Urine 0-2 (0-2)
[2024-10-22 11:19] LABS: Amorphous Sediment Urine Few; Squamous Epithelial Cell Urine Many (None-Few); WBC Urine 0-2 (0-5)
[2024-10-22] MEDS: METOCLOPRAMIDE HCL 5 MG/ML INJ 10 MG IVP (12:06)
[2024-10-22 12:07] VITALS: BP 122/73; PULSE 76; RESP 18; O2SAT 100
== END 2024-10-22 12:56 | disposition home or self-care (01) ==
PROVIDERS: Emergency Provider Student in an Organized Health Care Education/Training Program; PCP Nurse Practitioner Family
DX: O21.0 Mild hyperemesis gravidarum (principal)
CPT/HCPCS: 36415; 76817; 80053; 81001; 83735; 84702; 85025; 96374; 96375; 96376; 99284; J2405; J2765; J7120

== ENCOUNTER 2024-12-07 07:59 | Outpatient (CLI) | payer MEDICAID, SELFPAY ==
--- NOTE | 2024-12-07 08:15 | CRLHL7_ITS ---
For Patients: As a result of the Cures Act, medical imaging exams and procedure reports are released immediately into your electronic medical record. You may view this report before your referring provider. If you have questions, please contact your health care provider. OB ULTRASOUND INDICATION: Dating and viability. TECHNIQUE: Real time grayscale imaging of the fetus was performed. Transabdominal. LMP: Unknown. BECCA by LMP: 06/13/2025. GA: 13 w, 1 d. Previous US: Yes 10/22/2024. BECCA by US: 06/13/2025. GA: 6 w, 4 d. CRL: 7.3 cm. 13 w 3 d. BECCA: 06/11/2025. FHR: 155 BPM. Gestational sac: 6.8 cm. Appears within normal limits. Yolk sac: N/V. Right ovary: 2.9 x 1.4 x 2.4 cm. Left ovary: 3.5 x 2.2 x 3.1 cm. IMPRESSION: Single living intrauterine measuring 13 weeks 3 days and sonographic due date 06/11/2025. Maurilio London M.D. Diagnostic Radiologist [email or web address] SHERON/[email or web address]/Dictated by: Muarilio London MD @ 12/07/2024 11:21:00 AM (Electronically Signed)
== END 2024-12-07 08:00 | disposition home or self-care (01) ==
LOC: US 08:00
PROVIDERS: PCP Nurse Practitioner Family; Visit Provider Registered Nurse
DX: Z34.91 Encounter for supervision of normal pregnancy, unspecified, first trimester (principal); Z3A.13 13 weeks gestation of pregnancy
CPT/HCPCS: 76801; 83021; 86592; 86703; 86704; 86706; 86762; 86787; 86803; 86850; 87086; 87340

== ENCOUNTER 2025-01-23 07:31 | Outpatient (CLI) | payer MEDICAID, SELFPAY | END 2025-01-23 07:32 | disposition home or self-care (01) | LOC: US 07:31 | PROVIDERS: PCP Nurse Practitioner Family; Visit Provider Advanced Practice Midwife | DX: O99.212 Obesity complicating pregnancy, second trimester (principal); Z87.59 Personal history of other complications of pregnancy, childbirth and the puerperium; Z98.891 History of uterine scar from previous surgery; Z3A.19 19 weeks gestation of pregnancy | CPT/HCPCS: 76811 ==

== ENCOUNTER 2025-02-27 13:42 | Outpatient (CLI) | payer MEDICAID, SELFPAY | END 2025-02-27 13:43 | disposition home or self-care (01) | LOC: US 13:42 | PROVIDERS: PCP Nurse Practitioner Family; Visit Provider Midwife | DX: Z36.2 Encounter for other antenatal screening follow-up (principal); Z3A.24 24 weeks gestation of pregnancy | CPT/HCPCS: 76816 ==

== ENCOUNTER 2025-03-21 09:35 | Outpatient (CLI) | payer MEDICAID, SELFPAY | END 2025-03-21 09:36 | disposition home or self-care (01) | LOC: NFLDREF 03-24 17:14 | PROVIDERS: PCP Nurse Practitioner Family; Referring Provider Nurse Practitioner Family; Visit Provider Advanced Practice Midwife | DX: Z34.83 Encounter for supervision of other normal pregnancy, third trimester (principal) | CPT/HCPCS: 86592 ==

== ENCOUNTER 2025-03-29 15:15 | Outpatient (RCR) | payer MEDICAID, SELFPAY ==
--- NOTE | 2025-03-03 10:10 | PT.OPEX ---
Please sign the attached physical therapy evaluation. Thank you. PT [place] Outpatient Eval PT [facility] Outpatient Eval Start: 02/27/25 13:29 Freq: Status: Active Protocol: Document 03/01/25 21:13 TLQ (Rec: 03/01/25 21:15 TLQ No Response) E-signed By Lelia Mata DPT Physical Therapy Outpatient Evaluation Insurance Information Recert Due Date 05/30/25 Insurance Name Medicaid,[employer] Medical Diagnosis Pain in right knee M25.561 Treating Diagnosis Right knee pain M25.561 Muscle weakness M62.81 Antalgic gait R26.9 Impaired right knee ROM M25.661 Referring MD Cher Michele, BALER OPERATOR, MUSIC ARTIST Subjective Subjective Edelmira runs a daycare, 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 In March 2024 she fell off of the steps at her mom 's house, she felt like her knee gave out, she landed on both of her knees which were bruised and swelling. She fell off of the steps again a few months ago, felt like her knee gave out. She fell again last weekend while walking in the kitchen, her knee gave out causing her to fall. She states she in constant pain on a daily bases, she is unable to stand or sit comfortably. She has a brace that she wears with improved stability but minimal pain relief, she is unable to find relief with ice/heat. She is 25 weeks and does not want to keep falling. 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 She has not any imaging on her knee at this time. 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 Precautions Treatment 2nd trimester (25 weeks) Precautions/ Contraindications Therapy Limitations/ Not Limited Systems Review Objective Other/Pertinent RANGE OF MOTION - KNEE Objective R: 15-70 degrees, pain with flexion > extension L: 0-112 degrees, soft tissue restrictions STRENGTH hip flexion: R 4/5, L 5/5 hip extension: R 4/5, L 5/5 hip abduction: 5/5 hip adduction: R 4/5, L 5/5 knee flexion: R 4/5, L 5/5 knee extension: R 4-/5, L 5/5 PALPATION tender on R: MCL (greatest), medial tibiofemoral joint line, peripatellar, quad/patellar tendon, patella, rectus femoris/adductors SWELLING mid-patellar: R 47.5 cm, L46 cm SPECIAL TESTS - KNEE anterior drawer: - posterior drawer: - Myron's test: + medial meniscus pain varus stress test: - valgus stress test: + pain, - laxity GAIT antalgic gait, decreased stance on L Functional Test Lower Extremity Functional Scale (LEFS) Performed & Score score: 48/80 Assessment Assessment/ Edelmira is a 29-year-old female who presents to physical Impression therapy to address right knee pain of one year duration . Patient reports initial onset of symptoms after stepping off a step wrong, she felt a pop with immediate pain in her right knee. Since her initial incident, she has had additional experiences of her right knee buckling while walking down stairs. 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 She has tried bracing and icing while helps provide stability and decrease swelling, respectively. She has not had any imaging on her knee at this time; imaging is unable to be completed as patient is in her second trimester of . Today's examination was positive for the following limitations: painful/restricted right knee AROM, muscle weakness, and antalgic gait. Pain is located in medial aspect of knee, meniscal/MCL irritation is likely based on subjective history, palpation tenderness, and response to valgus stress test and Myron's test. Edelmira was educated on today's examination findings, spent time discussing swelling management, bracing, and activity modifications. She was instructed through an initial HEP and provided with a handout for home. Edelmira will benefit from skilled physical therapy interventions to decrease R knee swelling/pain, increase strength, and improve ROM for improved tolerance to weightbearing activities. Primary Functional right knee pain, weightbearing, stairs, walking, muscle Limitations weakness Plan of Care Rehabilitation Good Potential Physical Therapy In 6 weeks: Goals - Edelmira will demonstrate a 5-degree improvement in R knee flexion/extension AROM for mobility required to navigation stairs. - Edelmira will deny R knee instability with gait and stair navigation for 4 consecutive weeks. - Edelmira will report a subjective reduction in R knee pain to <6/10 for improved tolerance to weightbearing activity. In 10-12 weeks: - Edelmira will report a subjective reduction in pain to < 4/10 for improved tolerance to gait and stair navigation. - R knee AROM will improve to be WFL for range of motion required during stair navigation. - R quad strength will increase to 5/5 for improved motor control and stability during stair navigation. - LEFS score will increase to 57/80 (MCID 9 points) to indicate increased functional tolerance to weightbearing activities. - Edelmira will have good adherence to her HEP in order to manage her R knee symptoms outside of formal PT. Treatment Plan/ Electrical Stimulation,Gait Training,Ice/Cold/ Direct Interventions Vasopneumatic,Manual Therapy,Neuromuscular Re-ed,Self- Care/Home Management,Therapeutic Activities,Therapeutic Exercises Frequency/Duration 1x/week for 12 weeks Patient Will Be Completion of LTG(s),Independent w/HEP,Independently Discharged From Progressing Therapy Evaluation Billing Untimed Code 38 Treatment Minutes Complexity Low Certification Information Initial 03/01/25 Certification Date Ending Certification 05/30/25 Date Provider Signature Yes Required Provider Signature POC & Medical Necessity Shows Agreement With Physician NPI Number Write NPI# Here Physician Comment/ : Change Physician Signature Please Sign/Date Here & Date Requested
== END 2025-06-28 14:42 | disposition home or self-care (01) ==
PROVIDERS: PCP Nurse Practitioner Family; Visit Provider Nurse Practitioner Family
DX: M25.561 Pain in right knee (principal); Z51.89 Encounter for other specified aftercare
CPT/HCPCS: 97110; 97161

== ENCOUNTER 2025-05-01 14:26 | Emergency (ER) | payer MEDICAID, SELFPAY ==
[2025-05-01 14:37] VITALS: BP 122/78; PULSE 107; RESP 26; TEMP 36.4; O2SAT 98; BMI 43.1
--- NOTE | 2025-05-01 15:19 | ED.GENADULT ---
HPI - General Adult General Date Seen: 05/01/25 Chief complaint: Cough Stated complaint: respiratory issues, from urgent care Time Seen by Provider: 05/01/25 15:03 History of Present Illness HPI narrative: 29 yo F referred to the ER by the urgent care. Her urgent care triage nursing note she had come in with chest pain, difficulty breathing, cough ongoing for 2 weeks. Per patient ?I feel worse than when I was in the ER on 04/21 in [place]. ?. She is encouraged to come to the ER. Oxygen was 98% on room air. Pulse was 101. Respiratory rate was 30. Blood pressure 140/77. She reports that cough that began a little bit over 2 weeks ago. She was seen in [place] on 04/21 and apparently had a COVID swab that was negative and was given a course of cefdinir. She took the antibiotic but never really got better. She has been getting slowly worse with worsening cough, burning chest discomfort, chest tightness, also nasal congestion and developing sinus pain and headache for the past few days. She does not have a history of asthma. She did use her son's inhaler a couple of times this week without much improvement. She did use her father's nebulizer last night and noted some improvement with that. Per Ob records from the radio disc jockey her most recent checkup was 04/19. E ECC was 06/13/2025. A 0 0 she was 32 weeks and 1 day. She was already on aspirin, omeprazole, DHA. Per triage records that she has been sick for 2 weeks. She was seen in the [facility] emergency department 1 week ago and started on cefdinir. She is feeling worse since then. Cough, short of breath, headache, nasal congestion. She took Tylenol this morning. Also lower abdominal cramping began last night. She is not having ongoing abdominal cramping today. No vaginal fluid leakage or bleeding. She says that she thinks the cramping was probably Mckenzie John. She says that she would not have come to the doctor today for the abdominal cramping but she had to come to the doctor today because her cough is getting worse. Related Data Home Medications ?Medication ?Instructions ?Recorded ?Confirmed docosahexaenoic acid 200 mg mg PO 12/07/24 05/07/25 capsule ( DHA) aspirin 81 mg tablet 81 mg PO QDAY 03/21/25 05/07/25 omeprazole 10 mg capsule,delayed 10 mg PO ONCE 04/19/25 05/07/25 release Previous Rx's ?Medication ?Instructions ?Recorded epinephrine 0.3 mg/0.3 mL 0.3 ml IM Q5-15M PRN 04/04/23 injection, auto-injector hypersensitivity reaction #2 ea albuterol sulfate 2.5 mg/0.5 mL 2.5 mg (0.5 mL) inhalation Q4-6H 05/01/25 solution for nebulization PRN #30 ea prednisone 20 mg tablet 20 mg PO DAILY #10 tabs 05/01/25 azithromycin 250 mg tablet See Rx Instructions PO .COMPLEX 5 05/07/25 days #6 tabs fluticasone propionate 220 1 inh inhalation BID #12 grams 05/07/25 mcg/actuation HFA aerosol inhaler Allergies Allergy/AdvReac Type Severity Reaction Status Date / Time kiwi Allergy Verified 05/07/25 11:01 Penicillins Allergy Verified 05/07/25 11:01 venom-wasp Allergy Verified 05/07/25 11:01 bee pollen AdvReac Intermediate Severe Verified 05/07/25 11:01 swelling Paper wasp Allergy Severe Uncoded 05/07/25 11:01 white faced hornet Allergy Severe Uncoded 05/07/25 11:01 [facility] Medical History Abnormal uterine bleeding (AUB) ?N93.9 - Abnormal uterine and vaginal bleeding, unspecified (ICD-10) Pelvic pain ?R10.2 - Pelvic and perineal pain (ICD-10) History of vaginal delivery Gestational hypertension ?O13.9 - Gestational [-induced] hypertension without significant proteinuria, unspecified trimester (ICD-10) Seasonal allergies (03/19/11) ?J30.2 - Other seasonal allergic rhinitis (ICD-10) Surgical History Status post primary low transverse section (03/16/22) ?Z98.891 - History of uterine scar from previous surgery (ICD-10) Wesley teeth extracted (~2011) ?K08.409 - Partial loss of teeth, unspecified cause, unspecified class (ICD-10) 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 No alcohol. No illicit drug use. What is your current living situation?: I presently have a place to live In the past 12 months, utilities in danger of being shut off: no In past 12 months, lack of transportation kept you from medical appts, meetings, work, or getting things needed for daily living: no In the past 12 mos, have been you worried that your food would run out before you had money to buy more?: never true In the past 12 mos, the food you bought just didn't last and you didn't have money to buy more?: never true Smoking Status: Never smoker How often do you have a drink containing alcohol: never AUDIT-C Alcohol total score: 0 Non-prescribed substance use: denies use How often does anyone, including family, friends and others, physically hurt you: never How often does anyone, including family, friends and others, insult or talk down to you: never How often does anyone, including family, friends and others, threaten you with harm: never How often does anyone, including family, friends and others, scream or curse at you: never service: No Exam Narrative: Exam Narrative: Constitutional: Appears well-developed and well-nourished. Alert. Conversant despite frequent coughing. Non toxic. HENT: Head: Atraumatic. Nose: Nose normal other than non purulent bilateral rhinorrhea. TMs normal bilaterally. Mouth/Throat: Oral mucosa is clear and moist. no trismus. Pharynx normal. Tonsils symmetric. No tonsillar enlargement, erythema, or exudate. Eyes: Conjunctivae normal. EOM normal. Pupils equal, round, and reactive to light. No scleral icterus. Neck: Normal range of motion. Neck supple. No tracheal deviation present. Cardiovascular: Normal rate, regular rhythm. No gallop. No friction rub. No murmur heard. Symmetric radial artery pulses Pulmonary/Chest: Frequent dry cough. Effort normal. No stridor. No respiratory distress. No wheezes. No rales. No rhonchi . No tenderness. Abdominal: Soft. Bowel sounds normal. No distension. Gravid nontender uterus. No tenderness. No rebound. No guarding. Musculoskeletal: RUE: Normal range of motion. No tenderness. No deformity LUE: Normal range of motion. No tenderness. No deformity RLE: Normal range of motion. No edema. No tenderness. No deformity LLE: Normal range of motion. No edema. No tenderness. No deformity Lymph: No cervical adenopathy. Neurological: Alert and oriented to person, place, and time. Normal strength. CN II-VII intact. No sensory deficit. GCS eye subscore is 4. GCS verbal subscore is 5. GCS motor subscore is 6. Normal coordination Skin: Skin is warm and dry. No rash noted. No pallor. Normal capillary refill. Psychiatric: Normal mood. Normal affect. Const: Vital Signs, click to edit/add: Vital Signs - 24 hr 05/01/25 14:37 Temperature 97.6 F Pulse Rate [Pulse Oximeter] 107 H Respiratory Rate 26 H Blood Pressure [Ri ght Upper Arm] 122/78 Pulse Oximetry 98 Oxygen Delivery Me thod Room Air Course Course ED Course: Recheck-patient says cough is somewhat less frequent but more productive after neb. Repeat lung exam still clear. No definite wheezing. Reevaluation(s) Reevaluation #1: Recheck-patient had and uterine tomographic monitoring which are normal and reassuring. No signs of any distress or labor at this point. Vital Signs Vital signs: Initial Vital Signs Temperature 97.6 F 05/01/25 14:37 Temperature Source Temporal Artery Scan 05/01/25 14:37 Pulse Rate 107 H 05/01/25 14:37 Respiratory Rate 26 H 05/01/25 14:37 Blood Pressure 122/78 05/01/25 14:37 Blood Pressure Mean 92 05/01/25 14:37 Pulse Oximetry 98 05/01/25 14:37 Oxygen Delivery Method Room Air 05/01/25 14:37 Vital Signs Temperature 97.6 F 05/01/25 14:37 Pulse Rate 107 H 05/01/25 14:37 Respiratory Rate 26 H 05/01/25 14:37 Blood Pressure 122/78 05/01/25 14:37 Pulse Oximetry 98 05/01/25 14:37 Oxygen Delivery Method Room Air 05/01/25 14:37 Temperature 97.6 F 05/01/25 14:37 Pulse Rate 107 H 05/01/25 14:37 Respiratory Rate 26 H 05/01/25 14:37 Blood Pressure 122/78 05/01/25 14:37 Pulse Oximetry 98 05/01/25 14:37 Oxygen Delivery Method Room Air 05/01/25 14:37 Medications Administered Medications: Discontinued Medications Generic Name Dose Route Start Last Admin Trade Name Jovanna PRN Reason Stop Dose Admin Acetaminophen 1,000 mg 05/01/25 15:42 05/01/25 15:57 Acetaminophen 500 Mg Tablet PO 05/01/25 15:43 1,000 mg ONCE ONE Administration Albuterol/Ipratropium 1 neb 05/01/25 15:42 05/01/25 15:58 Iprat-Albut 0.5-2.5 Mg/3 Ml Neb IH 05/01/25 15:43 1 neb ONCE ONE Administration Medical Decision Making MDM Narrative Medical decision making narrative: This patient presents for evaluation of cough and shortness of breath ongoing for about 2 weeks, getting worse the past few days. This is consistent with an upper respiratory tract infection. Viral testing negative for COVID/influenza/RSV.. There is no signs at this point of serious bacterial infection such as OM, RPA, epiglottitis, [employer]LECT[employer] SUPER[employer], strep pharyngitis, pneumonia, sinusitis, meningitis, bacteremia, serious bacterial infection. Given duration of cough and associated we did obtain a chest x-ray which is fortunately negative for pneumonia. There are no gastrointestinal symptoms at this point and no signs of dehydration. She did have fairly persistent cough when she arrived here. She was not wheezing but after nebs cough is definitely less frequent. This would suggest some component of bronchospasm contributing to her cough. Suspect this is probably a viral induced bronchospasm as she has no history of asthma. Will treat her supportively with nebulizer at home. Also short prescription for steroids. Using shared decision-making we decided to hold off on any further antibiotics at this time. Close followup with primary care physician is indicated. Return to ED for fever > 103, protracted vomiting, confusion, or other worsening. Lab Data Labs: Lab Results 05/01/25 Range/Units 15:55 SARS-CoV-2 (PCR) Negative SARS-CoV-2 (Negative) Influenza Type A (PCR) Negative PCR FLU A (Negative) Influenza Type B (PCR) Negative PCR FLU B (Negative) RSV (PCR) Negative PCR RSV (Negative) Imaging Data Chest x-ray: Attestation: I have reviewed the pertinent imaging results. My impression: No acute infiltrate Radiologist's impression: Findings/Impression: Cardiovascular and mediastinum: Heart size is normal. Unremarkable mediastinum. Lungs and pleural spaces: Lungs are clear. No pleural effusion or pneumothorax. Bones and soft tissues: No significant findings. ECG Data Attestation: I personally reviewed and interpreted this ECG as follows: Interpretation: Normal sinus rhythm Rate 89 MN interval 132. No delta waves. Normal QRS axis No ST segment elevation or depression QTC 346, QTC 420 Discharge Plan Discharge Clinical Impression: Cough, Bronchospasm Patient Disposition: Home, Self-Care Condition: Stable Instructions: Upper Respiratory Infection (ED), Bronchospasm (ED) Additional Instructions: As we discussed, use the nebulizer every 4-6 hours if needed. If you have worsening cough, trouble breathing, chest pain, high fever or if you have trouble with your PB, please return to the ER immediately. Even if you are getting better, please recheck with your doctors tomorrow in clinic. Prescriptions: New albuterol sulfate 2.5 mg/0.5 mL solution for nebulization 2.5 mg inhalation Q4-6H PRNQty: 30 2RF Rx Instructions: for up to 3 doses prednisone 20 mg tablet 20 mg PO DAILY Qty: 10 0RF No Action DHA 200 mg capsule PO azithromycin 250 mg tablet See Rx Instructions PO .COMPLEX 5 Days Qty: 6 0RF Rx Instructions: For 250 mg dose pack: take 500 mg today (day 1), then 250 mg for 4 days (days 2-5) PO fluticasone propionate 220 mcg/actuation HFA aerosol inhaler 1 inh inhalation BID Qty: 12 0RF epinephrine 0.3 mg/0.3 mL auto-injector 0.3 ml IM Q5-15M PRN (Reason: hypersensitivity reaction) Qty: 2 1RF Rx Instructions: do not exceed 3 doses per episode aspirin 81 mg tablet 81 mg PO QDAY omeprazole 10 mg capsule,delayed release(DR/EC) 10 mg PO ONCE Follow Up/Referrals: Cher Michele, SCREENER OPERATOR, CHIEF CRNA [Primary Care Provider, Family Practice] Stand Alone Forms: [employer] Info Instructions
--- NOTE | 2025-05-01 15:42 | CRLHL7_ITS ---
For Patients: As a result of the Century Cures Act, medical imaging exams and procedure reports are released immediately into your electronic medical record. You may view this report before your referring provider. If you have questions, please contact your health care provider. Indication: Cough, chest tightness, 34 weeks Technique: Chest 2 views. Comparison: None. Findings/Impression: Cardiovascular and mediastinum: Heart size is normal. Unremarkable mediastinum. Lungs and pleural spaces: Lungs are clear. No pleural effusion or pneumothorax. Bones and soft tissues: No significant findings. Dictated by Kimber Cain MD @ 05/01/2025 4:15:42 PM (Electronically Signed)
[2025-05-01] MEDS: ACETAMINOPHEN 500 MG TABLET 1000 MG PO (15:57)
[2025-05-01] MEDS: IPRAT-ALBUT 0.5-2.5 MG/3 ML NEB 1 NEB IH (15:58)
[2025-05-01 16:47] LABS: PCR FLU A Negative PCR FLU A (Negative); PCR FLU B Negative PCR FLU B (Negative); PCR RSV Negative PCR RSV (Negative); SARS PCR* Negative SARS-CoV-2 (Negative)
--- NOTE | 2025-05-06 07:46 | PC.OBNST ---
The provider's electronic signature indicates the NST is reactive/appropriate for gestational age. FHR: 130 Reactive with accelerations No decelerations noted 05/01/2026 *Note to provider: If an addendum is required, open the patient's chart and click on the note under the Nurse/Allied Health tab.
== END 2025-05-01 17:23 | disposition home or self-care (01) ==
PROVIDERS: Emergency Provider Emergency Medicine; PCP Nurse Practitioner Family
DX: J98.01 Acute bronchospasm (principal)
CPT/HCPCS: 71046; 87631; 99283; 99284; A9270

== ENCOUNTER 2025-05-17 08:48 | Outpatient (CLI) | payer MEDICAID, SELFPAY ==
--- NOTE | 2025-05-17 09:15 | CRLHL7_ITS ---
For Patients: As a result of the Cures Act, medical imaging exams and procedure reports are released immediately into your electronic medical record. You may view this report before your referring provider. If you have questions, please contact your health care provider. OBSTETRICAL ULTRASOUND ??? BIOPHYSICAL PROFILE INDICATION: Obesity. CLINICAL HISTORY: BECCA by Ultrasound: 06/13/2025 Gestational Age: 36 weeks 1 day COMPARISON: 02/27/2025, 01/23/2025 TECHNIQUE: Real-time concepcion-scale transabdominal imaging of the fetus was performed. FINDINGS: Fetus: Single Cervix: Not visualized positioning: Vertex Amniotic Fluid: 6.0 cm SDP BIOPHYSICAL PROFILE: Gross body movements: 2 tone: 2 Respiratory activity: 2 Amniotic fluid SDP: 2 Total score: 8 Placenta technique: Transabdominal Placenta position: Posterior heart rate: 152 bpm BIOMETRY: BPD: 8.2 cm, 32 weeks 6 days, <3% HC: 31.8 cm, 35 weeks 5 days, 13.2% AC: 31.6 cm, 35 weeks 4 days, 42.5% FL: 6.8 cm, 35 weeks 0 days, 19.2% FL/AC Ratio: 21.58% HC/AC ratio: 1.00 EFW: 2602 grams; 5 lbs. 12 oz. age by this ultrasound: 34 weeks 6 days BECCA by this ultrasound: 06/22/2025 Percentile by BECCA: 25.1% IMPRESSION: 1. Normal biophysical profile score of 8/8. 2. Sonographic gestational age is 34 weeks 6 days and sonographic due date is 06/22/2025. Sonographic age is 9 days behind the clinical age. 3. Estimated weight is 25th percentile. Abdominal circumference is 43rd percentile. Biparietal diameter is less than 3rd percentile. 4. Grade 3 placenta with multiple placental calcifications. MAURILIO ROSS M.D. Diagnostic Radiologist [email or web address] Transcribed: 12:[address]/Dictated by: Maurilio Ross MD @ 05/17/2025 10:05:00 AM (Electronically Signed)
== END 2025-05-17 08:49 | disposition home or self-care (01) ==
LOC: US 08:48
PROVIDERS: PCP Nurse Practitioner Family; Visit Provider Midwife
DX: O99.213 Obesity complicating pregnancy, third trimester (principal); O36.5930 Maternal care for other known or suspected poor fetal growth, third trimester, not applicable or unspecified; Z3A.36 36 weeks gestation of pregnancy; G56.02 Carpal tunnel syndrome, left upper limb; M79.5 Residual foreign body in soft tissue
CPT/HCPCS: 76816; 76819; C1751

== ENCOUNTER 2025-05-17 10:08 | Outpatient (CLI) | payer MEDICAID, SELFPAY ==
[2025-05-18 13:19] LABS: Strep B DNA Probe Negative (Negative)
[2025-05-18 13:36] LABS: Strep B Susceptibility Needed? No
== END 2025-05-17 10:09 | disposition home or self-care (01) ==
LOC: NFLDREF 10:08
PROVIDERS: PCP Nurse Practitioner Family; Visit Provider Advanced Practice Midwife
DX: Z34.93 Encounter for supervision of normal pregnancy, unspecified, third trimester (principal); Z3A.36 36 weeks gestation of pregnancy
CPT/HCPCS: 87081; 87653

== ENCOUNTER 2025-06-10 00:37 | Inpatient (IN) | payer MEDICAID, SELFPAY ==
[2025-06-09 23:53] VITALS: PULSE 76; O2SAT 100
[2025-06-09 23:56] VITALS: BP 148/81; PULSE 82
[2025-06-10] VITALS (108 sets, daily range): BP systolic 99–161; BP diastolic 56–96; PULSE 63–132; RESP 16; TEMP 36.4–37; O2SAT 92–100; BMI 44.1
--- NOTE | 2025-06-10 00:10 | P.LDBA_ITS ---
Subjective History of Present Illness Narrative: Patient is being admitted to Labor and Delivery for active labor. She is a 29 year old at 39 39 4/7 weeks gestation. Her full history and physical was dictated by Gilmar Jones CNM on 05/24/2025. Please see this for details. She denies LOF or vaginal bleeding. She reports good mevement. Keshia is here supporting her in her labor. She denies MARSH, vision changes or RUQ pain. Specific Issues/Plans G 6 P 4014 Fiance: Keshia OB H&P completed 05/24/2025 by MATTY Eastman #History of -2021 due to arrest of descent, OP position, and repetitive late decelerations Desires TOLAC Has had 3 vaginal deliveries prior to c/s Consult with OBGYN: Done on 03/21/25 Chance of success: 46.7% Patient would consider repeat CS if growth scan at 36 weeks showed this fetus is significantly larger: appropriate size. Growth US at 36 weeks: EFW 25.1%ile # Desires permanent sterilization We reviewed salpingectomy at time of versus interval versus laparoscopic after 6 weeks. She prefers tubal via minilaparotomy following successful Federal consent form signed on 03/21/25 #History of gestational hypertension Baseline pre E labs Recommend daily low dose aspirin, did not take due to headache when took last ; agrees to try again #Pre- BMI 41.8 PLEASE REVIEW RECOMMENDATIONS FOR BMI, PT DOES NOT FEEL THEY ARE NECESSARY; Reviewed with patient 02/14, discussed recommendation risk/benefit. Hgb a1c: 4.8 Recommend Nutrition consult: patient declines Level 2 FAS: declines- Lev 1 ordered. Anesthesia consult: declines at this time, no previous issues but aware of recommendation testing starting at 34 weeks: declines at this time, reviewed recommendation 05/24, continues to decline Growth US at 28 and 34 weeks: declines at this time Delivery recommended: 39 0/7-39 6/7 weeks # Placenta calcifications seen at 36 weeks Imaging: Level II Ultrasound (01/23/2025): 1. Ahuja at 19w6d gestational age. 2. No anomalies commonly detected by ultrasound were identified in the detailed anatomic survey within the limits of ultrasound, however some views were suboptimal, as described above. 3. Growth parameters and estimated weight were consistent with gestational age predicted by assigned BECCA. 4. The amniotic fluid volume appeared normal. 5. On transabdominal imaging the cervix appeared long and closed. Follow-up is recommended with [facility] in 3-4 weeks to reassess anatomy that was suboptimally seen today.?Recommend growth ultrasound at 28 and 34 weeks in addition to weekly testing starting at 34 weeks due to maternal BMI. Follow-up (02/27/25): Impression: 1. Ahuja intrauterine at 24w 6d gestational age. 2. None of the anomalies commonly detected by ultrasound were evident in the anatomic survey described above. 3. Growth parameters and estimated weight were consistent with appropriate for gestational age pattern of growth. 4. The amniotic fluid volume appeared normal. We reviewed that the anatomy that was suboptimally seen at the prior US appeared within normal limits today. Given BMI > 40, recommend repeat assessment of growth and anatomy at 28 and 34 weeks and weekly BPP at 34 weeks, which I anticipate will be scheduled through [facility]. Edelmira has discussed this recommendation with her CNM team and they have planned a single repeat assessment of growth and anatomy. Growth US (05/17/2025): IMPRESSION: 1.Normal biophysical profile score of 8/8. 2.Sonographic gestational age is 34 weeks 6 days and sonographic due date is 06/22/2025. Sonographic age is 9 days behind the clinical age. 3.Estimated weight is 25th percentile. Abdominal circumference is 43rd percentile. Biparietal diameter is less than 3rd percentile. 4.Grade 3 placenta with multiple placental calcifications. 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 29 at 39 4/7 weeks gestation?? complicated by:??Pre BMI 41.8, History of Labor type: spontaneous high risk labor, early labor?? Category 1 FHR pattern.??? Labor complicated by: GHTN, TOLAC?? GBS negative? ?? PLAN:?? 1. Routine intrapartum cares as ordered for TOLAC with standard protocols. Continue with expectant management. To do inversion and side-lying releases.?? 2. Monitoring per policy, continuous?? 3. Planning medicated . Candidate for analgesia of choice.??May have when she desires. ? 4. Patient encouraged to reposition and ambulate to promote physiologic labor and .?? 5. HELLP labs, Type and screen and hold 2 units per plan, elevated BP protocol? 6. Anticipate ? OB Result Labs Blood Type: O (+) positive Rubella: immune RPR/VDLR: nonreactive GBS Status: negative HBsAG: negative OB Exam Physical Exam Vital signs: Pulse BP Pulse Ox 82 148/81 H 100 06/09/25 23:56 06/09/25 23:56 06/09/25 23:53 Narrative: Vitals Reviewed Constitutional:? Alert and oriented x3 HEENT:? Normocephalic, atraumatic Lungs:? Clear to auscultation bilaterally Heart:? Regular rate and rhythm, no murmur, rub or gallop Abdomen:? Soft, nontender, and gravid. Vertex by Filippo's, confirmed with cervical exam. Extremities:? No edema or erythema Cervix: 4 cm/80%/-2 station/vertex with palpable skull sutures NST: 130 bpm/moderate variability/accelerations present/decelerations absent/contractions q 2-6 min palpating moderate, Baby feels LOP.
[2025-06-10 00:58] LABS: Hematocrit* 36.1 % (33.0-51.0); Hemoglobin* 12.0 gm/dL (12.0-16.0); Immature Granulocytes Pct Auto 0.6 %; Mean Corpuscular HGB Conc 33 gm/dL (32-36); Mean Corpuscular Hemoglobin 28 pg (26-34); Mean Corpuscular Volume 85 fL (80-100); RDW Coefficient of Variation % 15.3 % (11.5-15.5); Red Blood Count* 4.27 m/uL (4.00-5.20); White Blood Count* 11.44 K/uL (4.50-11.00)
[2025-06-10 01:19] LABS: Alanine Aminotransferase* 14 U/L (4-35); Aspartate Amino Transferase* 25 U/L (12-35); Blood Urea Nitrogen* 10 mg/dL (5-24); Creatinine* 0.7 mg/dL (0.5-1.5); Est. Creatinine Clearance* 87.87; Estimated Glomerular Filt Rate 119 ml/min
[2025-06-10 01:25] LABS: Immature Granulocytes Abs Auto 0.10 K/uL (0.00-0.30); Lymphocytes Absolute Auto 2.00 K/uL (0.90-2.90); Slide Review Reflex No
[2025-06-10] MEDS: LACTATED RINGERS 1000 ML 1,000 ML 1200 ML IV (02:29)
[2025-06-10] MEDS: LACTATED RINGERS 1000 ML 1,000 ML 125 ML IV ×2 (03:15→07:20)
[2025-06-10] MEDS: ROPIVACAINE 0.2% 100 ml 100 ML 12 MG EPIDURAL (03:24)
[2025-06-10] MEDS: LIDOCAINE 2% (PF) 5 ML VIAL EPIDURAL (03:25)
--- NOTE | 2025-06-10 03:42 | PM.ANBPRC ---
[facility] Medical History Abnormal uterine bleeding (AUB) ?N93.9 - Abnormal uterine and vaginal bleeding, unspecified (ICD-10) Pelvic pain ?R10.2 - Pelvic and perineal pain (ICD-10) History of vaginal delivery Gestational hypertension ?O13.9 - Gestational [-induced] hypertension without significant proteinuria, unspecified trimester (ICD-10) Seasonal allergies (03/19/11) ?J30.2 - Other seasonal allergic rhinitis (ICD-10) Surgical History Status post primary low transverse section (03/16/22) ?Z98.891 - History of uterine scar from previous surgery (ICD-10) [place] teeth extracted (~2011) ?K08.409 - Partial loss of teeth, unspecified cause, unspecified class (ICD-10) 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 No alcohol. No illicit drug use. What is your current living situation?: I presently have a place to live In the past 12 months, utilities in danger of being shut off: no In past 12 months, lack of transportation kept you from medical appts, meetings, work, or getting things needed for daily living: no In the past 12 mos, have been you worried that your food would run out before you had money to buy more?: never true In the past 12 mos, the food you bought just didn't last and you didn't have money to buy more?: never true Smoking Status: Never smoker How often do you have a drink containing alcohol: never AUDIT-C Alcohol total score: 0 Non-prescribed substance use: denies use How often does anyone, including family, friends and others, physically hurt you: never How often does anyone, including family, friends and others, insult or talk down to you: never How often does anyone, including family, friends and others, threaten you with harm: never How often does anyone, including family, friends and others, scream or curse at you: never service: No Meds Home Medications and Allergies Home Medications ?Medication ?Instructions ?Recorded ?Confirmed ?Type epinephrine 0.3 mg/0.3 mL 0.3 ml IM Q5-15M PRN 04/04/23 06/10/25 Rx injection, auto-injector hypersensitivity reaction #2 ea docosahexaenoic acid 200 mg 200 mg PO DAILY 12/07/24 06/10/25 History capsule ( DHA) aspirin 81 mg tablet 81 mg PO QDAY 03/21/25 06/10/25 History omeprazole 10 mg capsule,delayed 10 mg PO ONCE 04/19/25 06/10/25 History release fluticasone propionate 220 1 inh inhalation BID #12 grams 05/07/25 06/10/25 Rx mcg/actuation HFA aerosol inhaler Held on 06/10/25. Instructions: not taking Allergies Allergy/AdvReac Type Severity Reaction Status Date / Time kiwi Allergy Verified 06/06/25 08:18 Penicillins Allergy Verified 06/06/25 08:18 venom-wasp Allergy Verified 06/06/25 08:18 bee pollen AdvReac Intermediate Severe Verified 06/06/25 08:18 swelling Paper wasp Allergy Severe Uncoded 06/06/25 08:18 white faced hornet Allergy Severe Uncoded 06/06/25 08:18 Results Labs Labs: Laboratory Results - last 24 hr 06/10/25 00:42 WBC 11.44 H RBC 4.27 Hgb 12.0 Hct 36.1 MCV 85 MCH 28 MCHC 33 RDW Coeff of Hamzah 15.3 Plt Count 174 Neut % (Auto) 72.9 H Lymph % (Auto) 17.2 L [place] % (Auto) 7.7 Eos % (Auto) 1.3 Baso % (Auto) 0.3 Neut # (Auto) 8.30 H Lymph # (Auto) 2.00 [place] # (Auto) 0.90 Eos # (Auto) 0.10 Baso # (Auto) 0.00 Abs Immat Gran (auto) 0.10 Imm/Tot Granulo (auto) 0.6 BUN 10 Creatinine 0.7 Estimated Creat Clear 87.87 Estimated GFR 119 AST 25 ALT 14 Vital Signs Vital Signs: Last Vital Signs Pulse 77 06/10/25 03:41 BP 122/67 06/10/25 03:41 Pulse Ox 98 06/10/25 03:41 Weight: 106 kg Height: 154.94 cm Anesthesia Procedures Epidural Insertion Patient Location: OB Start Time: 03:00 Stop Time: 03:40 Start Date: 06/10/25 Stop Date: 06/10/25 Reason for Block: procedure for pain Patient Position: sitting Performed By: Cyndi Mcleod Preanesthetic Checklist: IV checked, site marked, risks and benefits discussed, monitors and equipment checked, pre-op evaluation, timeout performed and anesthesia consent Prep: chlorhexidine gluconate Monitoring: blood pressure monitoring, continuous pulse oximetry and heart rate Approach: midline Vertebral Space: lumbar (1-5) Epidural Technique: GISSELLE saline Needle Type: Tuohy needle Injection Technique: continuous catheter Needle gauge: 17 Needle Length (cm): 10 cm Needle Insertion Depth (cm): 7 Catheter Gauge: 19 Catheter Type: multi-orifice Catheter at skin depth (cm): 17 Test Dose Result: negative and lidocaine 1.5% with epinephrine 1 to 200,000
[2025-06-10] MEDS: PHENYLEPHRINE 100 MCG/ML SYRINGE IVP (04:43)
[2025-06-10 04:50] LABS: Protein Creatinine Ratio Urine 0.56 (0-0.19)
--- NOTE | 2025-06-10 06:23 | P.OBPN_ITS ---
Subjective Date Seen: 06/10/25 Narrative: Patient was admitted to Labor and Delivery for active labor. She is a 29 year old at 39 39 4/7 weeks gestation. She has received her epidural and wanted to rest. She is now noticing some pressure intermittently. Keshia is supporting her at bedside. Specific Issues/Plans G 6 P [id number]: Keshia OB H&P completed 05/24/2025 by AMTTY Eastman #History of due to arrest of descent, OP position, and repetitive late decelerations Desires TOLAC Has had 3 vaginal deliveries prior to c/s Consult with OBGYN: Done on 03/21/25 Chance of success: 46.7% Patient would consider repeat CS if growth scan at 36 weeks showed this fetus is significantly larger: appropriate size. Growth US at 36 weeks: EFW 25.1%ile # Desires permanent sterilization We reviewed salpingectomy at time of versus interval versus laparoscopic after 6 weeks. She prefers tubal via minilaparotomy following successful Federal consent form signed on 03/21/25 #History of gestational hypertension Baseline pre E labs Recommend daily low dose aspirin, did not take due to headache when took last ; agrees to try again #Pre- BMI 41.8 PLEASE REVIEW RECOMMENDATIONS FOR BMI, PT DOES NOT FEEL THEY ARE NECESSARY; Reviewed with patient 02/14, discussed recommendation risk/benefit. Hgb a1c: 4.8 Recommend Nutrition consult: patient declines Level 2 FAS: declines- Lev 1 ordered. Anesthesia consult: declines at this time, no previous issues but aware of recommendation testing starting at 34 weeks: declines at this time, reviewed recommendation 05/24, continues to decline Growth US at 28 and 34 weeks: declines at this time Delivery recommended: 39 0/7-39 6/7 weeks # Placenta calcifications seen at 36 weeks Imaging: Level II Ultrasound (01/23/2025): 1. Ahuja at 19w6d gestational age. 2. No anomalies commonly detected by ultrasound were identified in the detailed anatomic survey within the limits of ultrasound, however some views were suboptimal, as described above. 3. Growth parameters and estimated weight were consistent with gestational age predicted by assigned BECCA. 4. The amniotic fluid volume appeared normal. 5. On transabdominal imaging the cervix appeared long and closed. Follow-up is recommended with [facility] in 3-4 weeks to reassess anatomy that was suboptimally seen today.?Recommend growth ultrasound at 28 and 34 weeks in addition to weekly testing starting at 34 weeks due to maternal BMI. Follow-up (02/27/25): Impression: 1. Ahuja intrauterine at 24w 6d gestational age. 2. None of the anomalies commonly detected by ultrasound were evident in the anatomic survey described above. 3. Growth parameters and estimated weight were consistent with appropriate for gestational age pattern of growth. 4. The amniotic fluid volume appeared normal. We reviewed that the anatomy that was suboptimally seen at the prior US appeared within normal limits today. Given BMI > 40, recommend repeat assessment of growth and anatomy at 28 and 34 weeks and weekly BPP at 34 weeks, which I anticipate will be scheduled through [facility]. Edelmira has discussed this recommendation with her CNM team and they have planned a single repeat assessment of growth and anatomy. Growth US (05/17/2025): IMPRESSION: 1.Normal biophysical profile score of 8/8. 2.Sonographic gestational age is 34 weeks 6 days and sonographic due date is 06/22/2025. Sonographic age is 9 days behind the clinical age. 3.Estimated weight is 25th percentile. Abdominal circumference is 43rd percentile. Biparietal diameter is less than 3rd percentile. 4.Grade 3 placenta with multiple placental calcifications. Objective Exam: Objective: Constitutional: Alert and oriented x3, no distress, coping well under epidural anesthesia Vital signs stable, see nurse documentation Abdomen: gravid, contractions palpate moderate with contractions and soft between Cervix: 10 cm/100%/+1 station/vertex/BBOW NST: 130 bpm/moderate variability/accelerations present/decelerations have resolved, previous lates occasional that spontaneously resolved/contractions q 3 min PCR 0.56 Vital Signs: Last Vital Signs Pulse 88 06/10/25 06:19 BP 130/87 06/10/25 06:19 Pulse Ox 97 06/10/25 06:18 Plan Plan: ASSESSMENT:?? 29 at 39 4/7 weeks gestation?? complicated by:??Pre BMI 41.8, History of Labor type: spontaneous high risk labor, early labor?? Category 1 FHR pattern.??? Labor complicated by: Pre-e with out severe features, TOLAC?? GBS negative? ?? PLAN:?? 1. Routine intrapartum cares as ordered for TOLAC with standard protocols. Continue with expectant management. 2. Monitoring per policy, continuous?? 3. Continue epidural anesthesia 4. Patient encouraged to reposition and ambulate to promote physiologic labor and .?? 5. HELLP labs normal except PCR 0.56, diagnosis Pre-e without severe features 6. Anticipate ?
--- NOTE | 2025-06-10 07:22 | P.OBCN_ITS ---
OB - CN: HPI Date of Consult Date Seen: 06/10/25 Consult date: 06/10/25 Requesting Physician: Lani Hart CNM Primary Care Provider: Cher Michele APRN, CLINICAL PRODUCT MANAGER Consult Narrative Narrative: Edelmira is a 29yo at 39 weeks admitted for spontaneous onset of labor. is complicated by C/S (in her last delivery, arrest of dilation and FHR concerns), 3 NSVDs prior, history gHTN, obesity. EFW by US on 05/17 was 2602g at 25%ile. She is an established patient of [facility] service. I was notified at 0620 of a TOLAC in active labor, 10cm dilated. I presented to hospital as part of TOLAC team. On arrival, FHR was category 1 - baseline 140bpm, moderate variability, accelerations present, no decelerations. SROM occurred at 0641 during onset of pushing. Fetus was noted to have recurrent suspected variable decelerations thereafter with gradual return to baseline of 120bpm with moderate variability. OB consult was requested at 0650. SBAR was provided by Ronal Hart CNM - where question was regarding candidacy for operative vaginal delivery. I presented to the bedside at 0653, where FHR was noted to be in the 90s with interrupted tracing. I introduced myself then obtained verbal consent for FSE placement. This was completed without difficulty. At time of my exam, station palpated 0. FSE was placed, patient repositioned and IVF bolus ongoing where FHR did recover to baseine of about 130bpm. Between contractions, repeat exam was completed where cervix is 10/100/0 and position palpates VITA. Bedside TAUS confirms spine is anterior. We attempted to push, where descent was noted to +1 with expulsive efforts. FHR continued to demonstrate recurrent variable decelerations, with gradual recovery during which marked variability was noted, to baseline of 145bpm with moderate variability. Explained to Edelmira that she is not a candidate for operative vaginal delivery at this time, given station of 0 to +1. If immediate delivery is required, it would be via repeat C/S. If station achieves +2, we could proceed with operative vaginal delivery where I offer both forceps and vacuum. Thoroughly explained risks/benefits and alternatives to forceps vs vacuum. Focused counseling on vacuum as this is the preferred modality of ongoing MD (Dr. Marley), where we discussed risks of higher order maternal laceration, scalp bruising, cephalohematoma, subgaleal/intracranial hemorrhage, laceration, nerve palsy, shoulder dystocia and PPH. Explained that 2nd stage C/S also has risks including deeply impacted head, extension of hysterotomy, bleeding, infection, damage to surrounding structures. At this exact moment, if expedited delivery were to be required she notes a preference for . Oncoming MD, Dr. Marley, arrived at the bedside at 0700 and assumed care. SBAR provided where she completed exam and agreed station is presently too high to offer operative vaginal delivery. She intends to continue maternal expulsive efforts so long as status remains stable. Please see subsequent documentation for complete details. History History 6 Elective abortions 0 Para 4 Spontaneous abortions 1 Hx # Term Pregnancies 4 Ectopic pregnancies 0 Hx # Pregnancies 0 Multiple births 0 Number of Living Children 4 Past Pregnancies Del. Date GA/Weeks Outcome Route wt Inf Gender Labor Lgth Anesthesia Location Provider [facility] 04/01/15 37 live - full term vaginal delivery 5 lb 1 oz Male 25 hrs epidural Delivered in [place] 05/31/16 40 live - full term vaginal delivery 6 lb 4 oz Femal e 5 hours epidural [place] 10/12/19 40 live - full term vaginal delivery 6 lb 10 oz Fema le 8 hrs epidural [place] 03/13/21 6 spontaneous 03/16/22 39 live - full term low transverse 7 lb [address] Marley gestational hyperten gage Delivery Date: 04/01/15 Last Updated by: Marizol Martinez M.D. Name: Timothy Delivery Date: 05/31/16 Last Updated by: Marizol Martinez M.D. Name: Janay Delivery Date: 10/12/19 Last Updated by: Marizol Martinez M.D. Name: ? Delivery Date: 03/16/22 Last Updated by: Laury Marley MD arrest of descent, repetitive lates, OP Labs Blood type: O (+) positive Rubella: immune RPR/VDLR: nonreactive GBS status: negative HBsAG: negative OB Labs: Lab Assessment Start: 06/10/25 00:23 Freq: ONCE Status: Active Protocol: PC.OBGBS Activity Type Activity Date Activity User E-sign Co-sign Detail Recorded Client Recorded Date Recorded By Document 06/10/25 00:42 FAMILIA No Response 06/10/25 00:46 FAMILIA 06/10/25 00:42 Lab Assessment GBS Status negative GBS Additional Criteria None Is Patient Allergic to Penicillin? High Risk Reaction No Treatment Needed OK Are Labs Available Yes Maternal Blood Type O Maternal RH Factor Positive Evaluate Maternal Rubella Immune Status Immune Hepatitis B Surface Antigen Negative Maternal HIV Status Negative Maternal Syphillis (RPR) Status Negative [facility] Medical History Abnormal uterine bleeding (AUB) ?N93.9 - Abnormal uterine and vaginal bleeding, unspecified (ICD-10) Pelvic pain ?R10.2 - Pelvic and perineal pain (ICD-10) History of vaginal delivery Gestational hypertension ?O13.9 - Gestational [-induced] hypertension without significant proteinuria, unspecified trimester (ICD-10) Seasonal allergies (03/19/11) ?J30.2 - Other seasonal allergic rhinitis (ICD-10) Surgical History Status post primary low transverse section (03/16/22) ?Z98.891 - History of uterine scar from previous surgery (ICD-10) [place] teeth extracted (~2011) ?K08.409 - Partial loss of teeth, unspecified cause, unspecified class (ICD- 10) 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 No alcohol. No illicit drug use. What is your current living situation?: I presently have a place to live In the past 12 months, utilities in danger of being shut off: no In past 12 months, lack of transportation kept you from medical appts, meetings, work, or getting things needed for daily living: no In the past 12 mos, have been you worried that your food would run out before you had money to buy more?: never true In the past 12 mos, the food you bought just didn't last and you didn't have money to buy more?: never true Smoking Status: Never smoker How often do you have a drink containing alcohol: never AUDIT-C Alcohol total score: 0 Non-prescribed substance use: denies use How often does anyone, including family, friends and others, physically hurt you : never How often does anyone, including family, friends and others, insult or talk down to you: never How often does anyone, including family, friends and others, threaten you with harm: never How often does anyone, including family, friends and others, scream or curse at you: never service: No Meds Home Medications and Allergies Home Medications ?Medication ?Instructions ?Recorded ?Confirmed ?Type epinephrine 0.3 mg/0.3 mL 0.3 ml IM Q5-15M PRN 3 06/10/25 Rx injection, auto-injector hypersensitivity reaction #2 ea docosahexaenoic acid 200 mg 200 mg PO DAILY 12/07/24 1 08/10/24 History capsule ( DHA) aspirin 81 mg tablet 81 mg PO QDAY 03/21/2506/10 History omeprazole 10 mg capsule,delayed 10 mg PO ONCE 5 06/10/25 History release fluticasone propionate 220 1 inh inhalation BID #12 gr ams 05/07/25 06/10/25 Rx mcg/actuation HFA aerosol inhaler Held on 06/10/25. Instructions: not taking Allergies Allergy/AdvReac Type Severity Reaction Status Date / Time kiwi Allergy Verified 06/06/25 08:18 Penicillins Allergy Verified 06/06/25 08:18 venom-wasp Allergy Verified 06/06/25 08:18 bee pollen AdvReac Intermediate Severe Verified 06/06/25 08:18 swelling Paper wasp Allergy Severe Uncoded 06/06/25 08:18 white faced hornet Allergy Severe Uncoded 06/06/25 08:18 OB - H&P: Exam Physical Exam: Vital signs: Pulse BP Pulse Ox 98 140/82 H 98 06/10/25 06:41 06/10/25 06:41 06/10/25 07:03 OB - Results Labs Labs: Short CBC 06/10/25 Range/Units 00:42 WBC 11.44 H (4.50-11.00) K/uL Hgb 12.0 (12.0-16.0) gm/dL Hct 36.1 (33.0-51.0) % Plt Count 174 (140-440) K/uL BMP 06/10/25 00:42 BUN 10 Creatinine 0.7 Liver Function 06/10/25 Range/Units 00:42 AST 25 (12-35) U/L ALT 14 (4-35) U/L OB - CN: A/P Assessment and Plan (1) Pain during labor: Status: Acute (2) History of delivery: Status: Acute (3) Obesity affecting : Status: Acute (4) History of gestational hypertension: Status: Acute (5) Supervision of high risk , antepartum: Status: Acute (6) Gestational hypertension affecting sixth : Status: Acute
[2025-06-10] MEDS: AZITHROMYCIN 500 MG in 0.9 % SODIUM CHLORIDE 250 ml 250 ML 255 MG IVPB (07:45)
--- NOTE | 2025-06-10 07:47 | P.ANES_ITS ---
Anesthesia Charges Start Date/Time Anesthesia Start Date: 06/10/25 Anesthesia Start Time: 07:48 Stop Date/Time Anesthesia Stop Date: 06/10/25 Anesthesia Stop Time: 09:59 Coding CPT Codes CPT Codes: ANES/ANALG CS DELIVER ADD-ON - 15830 ([id number]) P3 - PATIENT W/SEVERE SYS DISEASE, QZ - LADLE OPERATOR SVC W/O TAPE MAKER BY
--- NOTE | 2025-06-10 07:47 | W.ANESCHARGE ---
Anesthesia Charges Start Date/Time Anesthesia Start Date: 06/10/25 Anesthesia Start Time: 07:48 Stop Date/Time Anesthesia Stop Date: 06/10/25 Anesthesia Stop Time: 09:59 Coding CPT Codes CPT Codes: ANES/ANALG CS DELIVER ADD-ON - 50572 ([id number]) P3 - PATIENT W/SEVERE SYS DISEASE, QZ - BEE BREEDER SVC W/O BILLET HEATER BY
--- NOTE | 2025-06-10 07:58 | P.NB_ITS ---
Nerve Block Nerve Block Time Seen by Provider: 09:45 Date Seen: 06/10/25 Type of block requested by surgeon for post-operative analgesia: TAP Side: bilateral Time out performed: Yes Verification of patient name: Yes Verification of date of : Yes Site marking: site marked Name of person performing procedure: Woodrow Catalan Continuous monitoring Was continuous monitoring of O2 sat, B/P, grinder set up operator thread, recorded every 15 minutes?: Yes Procedure Checklist: sterile prep, needles and gloves Ultrasound guided. Images saved: Yes Medications given in 5ml increments after negative aspiration: Marcaine %: 0.25 mL: 30 Needle gauge: 20 and Exparel mL: 10 Needle gauge: 20 Patient tolerated procedure well: Yes Additional comments: Injected in 5ml increments after negative aspiration Block Charges Block Charge (with Pro Fee): TAP Bilateral Use of Ultrasound Machine for Block: Yes- US Guidance/pain block
--- NOTE | 2025-06-10 08:12 | SUR.OPER ---
PATIENT BROUGHT TO OR #5 BY CART BY OB RN. Patient positioned supine with a bump under the right on OR #5 bed for the procedure. ? Final approval of positioning by surgeon.
--- NOTE | 2025-06-10 09:53 | P.OBPRC_ITS ---
Procedure Date of procedure: 06/10/25 Pre-op diagnosis: 1. 39 4/7 weeks gestation. 2. History of prior LTCS undergoing TOLAC. 3. intolerance of labor in the second stage. 4. Maternal request for repeat section. 5. Undesired fertility. Post-op diagnosis: same Procedure Done: Global Will [facility] bill your pro fee for this procedure?: Yes Blood Loss Measurement Type: QBL (551 mL) Bakri Used: No IV fluids (mL): 1,800 Urine Output (mL): 50 Surgeon: Laury Marley MD Vehicle Service Agent: Mary Corrales MD Anesthesia Type: Epidural and TAP Block Findings: Dense adhesions between the rectus muscles and fascia. Dense adhesions between the urinary bladder, the anterior abdominal wall, and the lower uterine segment at the site of the previous hysterotomy scar. Otherwise normal-appearing uterus, tubes, and ovaries. Live-born female, cephalic presentation, thick meconium-stained fluid, Apgars 4. 8 and 8 at 1, 5 and 10 minutes respectively. Lower uterine segment full thickness defect in the midline 1 cm below the transverse hysterotomy incision. 3 cm defect in the bladder serosa, though underlying layer intact. Procedure Name: Repeat low transverse section. Bilateral salpingectomy. Extensive lysis of adhesions. Repair of bladder serosa disruption. Procedure Description: After obtaining informed consent, the patient was taken to the operating room where epidural anesthesia was tested and found to be adequate. She was prepared and draped in the normal sterile fashion in the dorsal supine position with a leftward tilt. Knox catheter was sterilely inserted into the bladder during the prep. A Pfannenstiel skin incision was made with a scalpel along the line of the patient's previous Pfannenstiel scar. This incision was carried down to the underlying layer of fascia with the Bovie. The fascia was incised in the midline and the incision extended laterally. The superior and inferior aspects of the fascial incision were grasped with Libia clamps, elevated and the underlying rectus muscles dissected off sharply and with electrocautery. This dissection took an increased amount of time given the dense adhesions. The rectus muscles were then carefully in the midline. Particular care was needed inferiorly, as the bladder was densely adherent to the anterior peritoneum as well as to the underlying uterine serosa at the lower uterine segment. The adhesions between the bladder and lower uterine segment were taken down sharply with Metzenbaum scissors and blunt dissection where appropriate. The Yevgeniy O retractor was then placed into the incision. The lower uterine segment was then incised in a transverse fashion with the scalpel slightly above the previous hysterotomy scar in an attempt to avoid the bladder. The uterine incision was extended laterally with blunt finger fractionation. Thick meconium-stained amniotic fluid was noted. I was able to reach down in cup my hand around the vertex while an RN applied gentle cephalad pressure to the head, but was unable to flex the neck and adequately elevate the head to the level of the hysterotomy incision. In the process, the infant's right shoulder and arm delivered. At this point, I was able to replace the arm into the uterus and grasped both feet, rotating the infant and delivering it breech, while maintaining neck flexion. The was noted to have poor tone. The cord was immediately doubly clamped and cut, and the infant was handed off the field to Cyndi Stone [employer]ER[employer]ONT LOAD OPERATOR for evaluation on resuscitation. The placenta was delivered spontaneously with umbilical cord traction and fundal massage. The uterus was cleared of all clots and debris. At this point, I had concerns about the bladder integrity as I identified a small vertical rent in the midline lower uterine segment about 1 cm below the hysterotomy incision, which ended very near the bladder. I called for assistance from a partner and Dr. Corrales scrubbed in. The bladder was back-filled with 100 mL sterile milk through the Knox catheter which was then clamped by the circulating RN. We ascertained that the lower uterine segment midline disruption did not involve the bladder. The lower uterine segment tear was then reapproximated in a running locking fashion with a 3-0 chromic suture. Excellent hemostasis was observed. The transverse hysterotomy incision was then reapproximated in a running locking fashion with a 0 chromic suture. One additional figure of X suture was needed in the midline of the clos ure. Excellent hemostasis was visualized. The uterus was then exteriorized. Both fallopian tubes were identified to their fimbrial ends. Attention was 1st turned to the left fallopian tube which was elevated in its midsection with two Sami clamps, and then fully excised the hand-held LigaSure from distal to proximal. The tube was passed off the field. Excellent hemostasis was visualized. Attention was then turned to the right fallopian tube, which was elevated and excised in a similar fashion. The uterus was returned to the abdomen. An additional 100 mL of sterile milk was backfilled into the bladder again through the Knox catheter by the circulating RN. The bladder was carefully inspected, and in the midline and extending slightly to the left, there was what appeared to be a disruption in the bladder serosa, though the underlying layer was intact. The serosa was reapproximated in a running fashion using a 3-0 Vicryl suture. Adeola was placed over the raw lower uterine segment and bladder. All instruments and retractors were removed. The subfascial tissues were carefully inspected and hemostasis assured. The fascia was reapproximated in a running fashion with a looped 0 Maxon suture. The subcutaneous tissues were copiously irrigated. Hemostasis was assured. The subcutaneous fat layer was reapproximated with interrupted sutures of 3-0 plain gut. The skin was closed in a subcuticular fashion with 4-0 Vicryl. Surgical glue and dressing were applied. A TAP block was administered by anesthesia. The patient tolerated the procedure well. Sponge, lap, needle, and instrument counts were reported as correct x2. The patient was taken to the recovery room, awake, and in stable condition. She did receive two grams of IV Ancef and 500 mg IV Azithromycin preoperatively. Toradol 30 mg was administered at the conclusion of the procedure. Pathology: specimen obtained, sent to pathology (Placenta and bilateral fal lopian tubes) Surgery Debrief Performed: Yes Condition: stable Disposition: floor
[2025-06-10] MEDS: ACETAMINOPHEN 500 MG TABLET 1000 MG PO ×2 (12:37→19:43)
[2025-06-10] MEDS: SIMETHICONE 80 MG TAB.CHEW PO (16:21)
[2025-06-11 01:15] LABS: Hemoglobin* 10.2 gm/dL (12.0-16.0)
[2025-06-11 01:38] LABS: Alanine Aminotransferase* 12 U/L (4-35); Aspartate Amino Transferase* 26 U/L (12-35); Creatinine* 0.8 mg/dL (0.5-1.5); Est. Creatinine Clearance* 76.89; Estimated Glomerular Filt Rate 101 ml/min
[2025-06-11] MEDS: ACETAMINOPHEN 500 MG TABLET 1000 MG PO ×4 (02:46→23:01)
[2025-06-11 03:43] VITALS: BP 101/63; PULSE 79; RESP 16; TEMP 36.6; O2SAT 96
--- NOTE | 2025-06-11 07:38 | PM.OBPNVD1 ---
OB - PN:Subj Subjective Date Seen: 06/11/25 Patient comments OB post-: no complaints, pain well controlled, tolerating diet and flatus present [place] status: and doing well [place] feeding status: exclusively Narrative: Edelmira feels well.? Her pain is well controlled with current medications.? She has no new complaints.? Urinary output is adequate. She has a Knox catheter in place that will be removed this morning.? Has a good appetite, is tolerating a general diet, is passing flatus, and has not had a bowel movement.?She is experiencing some gas pain and she is looking forward to being able to ambulate more easily after her Knox is out to assist in relieving this. Has scant amount of rubra lochia.? She is ambulating well.?She is and baby is feeding well at this time. Blood pressures have remained WNL and she is asymptomatic. OB - PN: Obj Exam Physical Exam: Vital signs: Temp Pulse Resp BP Pulse Ox O2 Del Method 97.9 F 79 16 101/63 96 Room Air 06/11/25 03:43 06/11/25 03:43 06/11/25 03:43 06/11/25 03:43 06/11/25 03:43 06/11/25 03:43 Narrative: GENERAL APPEARANCE:? normal affect, alert, no distress? MOOD:? appropriate? CHEST:? clear to auscultation and percussion? HEART:? regular rate and rhythm? BREASTS: soft, nontender, no erythema, nipples intact? ABDOMEN:? soft, non-tender the uterine fundus is U/1 and is appropriate for the stage of recovery. Incision dressing is C/D/I.?Using heat and ice alternating.? EXTREMITIES:? normal and no edema? OB - PN: Obj Data Labs Labs: Laboratory Results - last 24 hr 06/11/25 01:10 Hgb 10.2 L Creatinine 0.8 Estimated Creat Clear 76.89 Estimated GFR 101 AST 26 ALT 12 OB - PN: A/P Delivery Assessment and Plan (1) Lactating mother: Status: Acute (2) Preeclampsia: Status: Acute (3) Depression with anxiety: Status: Acute (4) Status post bilateral salpingectomy: Status: Acute Plan day: 1 Plan: routine care Comments: Anticipate discharge home tomorrow or the following day per patient preference.
[2025-06-11] MEDS: SIMETHICONE 80 MG TAB.CHEW PO (08:01)
[2025-06-11] MEDS: IBUPROFEN 600 MG TABLET PO ×3 (08:01→20:06)
[2025-06-11] MEDS: DOCUSATE SODIUM 100 MG CAPSULE PO (08:01)
[2025-06-11 09:30] VITALS: BP 109/71; PULSE 89; RESP 16; TEMP 36.4; O2SAT 96
[2025-06-11 13:50] VITALS: BP 110/75; PULSE 82; RESP 16; TEMP 36.5; O2SAT 96
[2025-06-11 17:00] VITALS: BP 114/77; PULSE 85; RESP 16; TEMP 36.6; O2SAT 97
[2025-06-11 20:10] VITALS: BP 116/79; PULSE 84; RESP 16; TEMP 36.5; O2SAT 97
[2025-06-12 00:26] VITALS: BP 116/76; PULSE 82; RESP 16; TEMP 36.5; O2SAT 98
[2025-06-12] MEDS: IBUPROFEN 600 MG TABLET PO (02:04)
[2025-06-12 04:50] VITALS: BP 116/80; PULSE 80; RESP 12; TEMP 36.6; O2SAT 98
[2025-06-12] MEDS: ACETAMINOPHEN 500 MG TABLET 1000 MG PO (05:08)
--- NOTE | 2025-06-12 07:36 | P.DS_ITS ---
DS: Providers Provider Date Seen: 06/12/25 Date of admission: 06/10/25 00:37 Primary care physician: Cher Michele APRN, SENIOR STRATEGY ANALYST Admitting Clinician: Lani Hart CNM Attending Physician on discharge: Asia Waller CNM Date of Discharge: 06/12/25 DS: Diagnosis Discharge Diagnosis (1) Status post bilateral salpingectomy: Status: Acute (2) Preeclampsia: Status: Acute (3) Lactating mother: Status: Acute (4) History of delivery: Status: Acute (5) Status post primary low transverse section: Status: Inactive Problem details: For indications Exam Narrative: Exam Narrative: GENERAL APPEARANCE:? normal affect, alert, no distress MOOD:? appropriate CHEST:? clear to auscultation HEART:? regular rate and rhythm ABDOMEN:? soft, non-tender the uterine fundus is @ Umbilicus, Midline and is appropriate for the stage of recovery. EXTREMITIES:? +1 BLE pitting edema Incision: Healing well, no surrounding erythema, abnormal induration or discharge Const: Vital Signs, click to edit/add: Vital Signs - 24 hr 06/11/25 09:30 06/11/25 13:50 06/11/25 17:00 Temperature 97.5 F L 97.7 F 97.9 F Pulse Rate [Pulse Oximeter] 89 82 85 Respiratory Rate 16 16 16 Blood Pressure [Ri ght Arm] 109/71 110/75 114/77 Pulse Oximetry 96 96 97 Oxygen Delivery Me thod Room Air Room Air Room Air 06/11/25 20:10 06/12/25 00:26 06/12/25 04:50 Temperature 97.7 F 97.7 F 97.8 F Pulse Rate [Pulse Oximeter] 84 82 80 Respiratory Rate 16 16 12 Blood Pressure [Ri ght Arm] 116/79 116/76 116/80 Pulse Oximetry 97 98 98 Oxygen Delivery Me thod Room Air Room Air Room Air OB - DS: Summary Hospital Course Hospital Course: Edelmira is [age] y.o. who was admitted to [facility] for active labor. ?She had a section for intolerance that was uncomplicated. The patient feels well. ?The pain is well controlled with current medications. ?She has no new complaints. ?She is breast feeding and reports things are going well. the patient has done well.? Vitals have been stable.? She has remained afebrile.? Has a good appetite, is tolerating a general diet. ?She is voiding without difficulty.? She is passing gas and has not had a bowel movement.? She is ambulating and denies any dizziness.? Has small amount of rubra lochia. She had a bilateral salpingectomy for prevention. Discharge home with baby.? Follow up in 2 weeks and 6 weeks.? , may see if needed? Hgb: stable at 10.2. encourage high protein/iron diet and continue with PNV daily while BF GHTN/Pre-E/Elevated BP diagnosed by elevated BP greater than 4 hours apart? Labs WNL or stable with trending? Discharge home with BP cuff if does not already have one? Follow up in two days for BP check Call for signs/symptoms of preeclampsia? For pain control of perineum, breast and pelvic pain, take 600 mg Ibuprofen every 6 hours as needed by mouth or 1000 mg acetaminophen (Tylenol) every 6 hours by mouth as needed. You can alternate these so you are taking something every 3 hours as needed. A heating pad can also be used for your abdomen or breasts. You may also take docusate sodium up to twice daily to soften your stools and help to prevent constipation. You may wean off of it when your stools return to normal.?Oxycodone will be ordered to be taken prn for pain. Problems: Peripartum Data delivery method: Repeat Section Procedures: Procedures Operation Date: 06/10/25 07:45 Actual Procedure Side Surgeon p REPEAT Section WITH BILATERAL SALPINGECTOMY FOR STERILIZATION, LYSIS OF ADHESIONS, REPAIR OF BLADDER SEROSA Bilateral Laury Marley MD Procedures: tubal ligation/salpingectomy complications: none Infant Gender: Female Infant Discharge Plan: Home Time Spent with Patient Time attestation: Total time spent providing and/or coordinating discharge services: Discharge Plan Discharge Disposition: Home, Self-Care Date of Admission: 06/10/25 00:37 Attending Provider on Discharge: Asia Waller Primary Care Provider: Cher Michele Condition: Stable Anticipated Discharge Date/Time: 06/12/25 10:00 Discharge Medications: New acetaminophen 500 mg Tablet 1,000 mg PO Q6H PRN (Reason: Pain) Qty: 0 0RF docusate sodium 100 mg Capsule 100 mg PO DAILY Qty: 0 0RF ibuprofen 600 mg Tablet 600 mg PO Q6H PRN (Reason: Pain) Qty: 0 0RF simethicone 80 mg Tablet,Chewable 80 - 160 mg PO Q4H PRN (Reason: Gas) Qty: 0 0RF oxycodone 5 mg Tablet 5 - 10 mg PO Q4H PRN (Reason: Pain) Qty: 10 0RF Continued DHA 200 mg capsule 200 mg PO DAILY fluticasone propionate 220 mcg/actuation HFA aerosol inhaler 1 inh inhalation BID Qty: 12 0RF epinephrine 0.3 mg/0.3 mL auto-injector 0.3 ml IM Q5-15M PRN (Reason: hypersensitivity reaction) Qty: 2 1RF Rx Instructions: do not exceed 3 doses per episode Discontinued aspirin 81 mg tablet 81 mg PO QDAY omeprazole 10 mg capsule,delayed release(DR/EC) 10 mg PO ONCE Discharge Orders: Discharge Order (Routine); Ordered 06/12/25 Ordered By: Asia Waller Patient Education: OB High Blood Pressure DC, OB Over the Counter Medication Information, OB /Breast Feeding Additional Instructions: Discharge instructions were reviewed with the patient including signs and symptoms of infection and home going medications Lifting Restrictions: 20 pounds for 6 weeks No not submerge incision under water X 2 weeks? Nothing vaginally for 6 weeks: no tampons or intercourse Do not drive while taking narcotic pain medication(s) Off Work or School for 8 weeks Symptoms to report to doctor: * Bleeding that saturates more than one pad per hour * Passing clots larger than the size of a golf ball * Pain not relieved by prescribed medication * Fever above 100.4 degrees Fahrenheit * A foul vaginal odor * Difficulty in emotions, mood, and functions * Thoughts of hurting yourself and/or * Painful, reddened area in your breast * Any drainage, redness, or tenderness in your IV/epidural site * Severe headache that doesn't improve after taking medications * Changes in vision, including temporary loss of vision, blurred vision, and/or light sensitivity * Upper abdominal pain (usually under ribs on the right side) * Decrease in urination or painful, frequent urinating * Chest pain * Shortness of breath * Tenderness or pain with redness and/swelling in the calf(s) of your leg [facility] for [facility] BP check?06/14/25 Call with BP greater than or equal to 160/110 Optional 2-week visit: incision check, discuss feeding concerns, review control options and screen for anxiety/depression. 6-week visit for an annual exam. consultation services are available to all mothers and babies for the first year after delivery.? To make an appointment, please call [phone]. Activity Level: Activity as Tolerated and No strenuous activity Discharge Diet: Regular Diet Detail: focus on high iron foods. Follow Up Appointments: [facility] [Provider Group] Forms: Public [employer] Info Instructions
[2025-06-12 07:45] VITALS: BP 126/83; PULSE 81; RESP 16; TEMP 36.5; O2SAT 97
[2025-06-12] MEDS: DOCUSATE SODIUM 100 MG CAPSULE PO (07:52)
== END 2025-06-12 10:26 | disposition home or self-care (01) | DRG 785 ==
LOC: OB OUT 00:37 → OB 00:37
PROVIDERS: Obstetrics & Gynecology; Admitting Provider Midwife; PCP Nurse Practitioner Family; Visit Provider Midwife
PROC: 10D00Z1 Extraction of Products of Conception, Low, Open Approach (ICD-10-PCS; CPT 59514; principal; 2025-06-10 07:45)
DX: O34.211 Maternal care for low transverse scar from previous cesarean delivery (principal); O66.41 Failed attempted vaginal birth after previous cesarean delivery; O14.04 Mild to moderate pre-eclampsia, complicating childbirth; O76 Abnormality in fetal heart rate and rhythm complicating labor and delivery; G89.18 Other acute postprocedural pain; O77.0 Labor and delivery complicated by meconium in amniotic fluid; O99.214 Obesity complicating childbirth; O99.62 Diseases of the digestive system complicating childbirth; K66.0 Peritoneal adhesions (postprocedural) (postinfection); O99.344 Other mental disorders complicating childbirth; F41.8 Other specified anxiety disorders; Z30.2 Encounter for sterilization; Z3A.39 39 weeks gestation of pregnancy; Z37.0 Single live birth
CPT/HCPCS: 01967; 01968; 36415; 64488; 76815; 76942; 82565; 82570; 84156; 84450; 84460; 84520; 85018; 85025; 85027; 86592; 86850; 86900; 86901; G0463; A4314; A9270; J0456; J0665; J0666; J0690; J1100; J1885; J2371; J2405; J2590; J2795; J3010; J7050; J7120

== ENCOUNTER 2025-07-23 11:47 | Outpatient (CLI) | payer MEDICAID, SELFPAY | END 2025-07-23 11:48 | disposition home or self-care (01) | LOC: NFLDREF 07-30 14:12 | PROVIDERS: PCP Nurse Practitioner Family; Referring Provider Nurse Practitioner Family; Visit Provider Physician Assistant | DX: R39.89 Other symptoms and signs involving the genitourinary system (principal) | CPT/HCPCS: 87086 ==